=== PATIENT | male | born 1970 | race Caucasian/White ===

== ENCOUNTER 2022-10-13 08:48 | Outpatient (OUT) | payer OTHER, SELFPAY ==
--- NOTE | 2022-10-13 09:05 | PM.CN ---
Consult Note: HPI Data of Consult Patient: known to practice within the last 3 years Consult date: 10/13/22 Requesting Physician: JEFF IYER NP Primary Care Provider: James Hernández DO Consult Narrative Narrative: Patient is here for f/u of low back pain which is improving since surgery. Has not had PT yet . Walks with cane. No new sensorimotor or bowel or bladder issues. No adverse medication SE. Medication regimen assists patient in ability to complete ADLs. Lumbar fusion 08/21. Sees surgeon for f/u next week. He is taking tylenol for pain. Will f/u PRN since post-surgery and no meds or therapy prescribed by us. cc:: CC: JEFF IYER NP Review of Systems ROS Status of ROS 10 or more systems reviewed and unremarkable except as noted in history and below Musculoskeletal Reports: back pain Exam Constitutional Documenting provider has reviewed patient's vital signs: yes Common normals: no apparent distress, average body habitus, oriented x3, no limitations, healthy appearing, alert and well nourished General appearance: cooperative, comfortable and well developed Orientation/consciousness: Yes awake, Yes oriented to person, Yes oriented to place and Yes oriented to time HENMT Common normals: head/scalp atraumatic, nasal mucous membranes and turbinates normal and moist oral mucous membranes Respiratory Common normals: normal respiratory effort, no retractions and no use of accessory muscles Effort & inspection: able to speak in complete sentences and symmetric chest movement Back & Pelvis Lumbar spine/lower back: ROM limited, pain with ROM, paraspinal muscle tenderness and other soft tissue findings (surgical scars well healed. No drainage or sx of infection) Assessment and Plan Assessment and Plan (1) Lumbar stenosis: Plan See surgeon as scheduled f/u PRN
== END 2022-10-13 08:49 ==
PROVIDERS: PCP Internal Medicine; Visit Provider Nurse Practitioner
DX: S23.3XXA Sprain of ligaments of thoracic spine, initial encounter (principal); S33.8XXA Sprain of other parts of lumbar spine and pelvis, initial encounter; M51.26 Other intervertebral disc displacement, lumbar region
CPT/HCPCS: G0463

== ENCOUNTER 2022-10-27 06:55 | Outpatient (RCR) | payer OTHER, SELFPAY | END 2023-04-30 09:00 | disposition home or self-care (01) | LOC: PT 06:55 | PROVIDERS: PCP Internal Medicine; Visit Provider Nurse Practitioner Family | DX: Z98.1 Arthrodesis status (principal) | CPT/HCPCS: 20561; 97110; 97112; 97113; 97140; 97162; 97530 ==

== ENCOUNTER 2023-05-10 12:57 | Outpatient (RCR) | payer SELFPAY | END 2023-06-15 08:00 | disposition home or self-care (01) | LOC: PT 12:57 | PROVIDERS: PCP Internal Medicine; Visit Provider Nurse Practitioner Family | DX: M51.26 Other intervertebral disc displacement, lumbar region (principal); Z98.1 Arthrodesis status | CPT/HCPCS: 97140; 97530; 97546; W0710 ==

== ENCOUNTER 2023-06-12 12:03 | Outpatient (OUT) | payer OTHER, SELFPAY ==
--- OUTSIDE RECORDS SUMMARY | 2023-06-12 12:08 | XMS_ITS | CCD ---
Author Name Unknown Address [address] [place] [address] Organization [facility] Care Team Providers Care Tug Captain Name Role Phone Amaya George Unavailable James Farley Unavailable FITZPATRICK ., BEBETO Consulting Unavailable DE LEON ., DR KRISTIN Calvo Admitting Unavailable MARTINE, DR COFFMAN Primary Care Unavailable DE LEON ., DR KRISTIN Calvo Attending Unavailable WYATT, CHELA Primary Care Unavailable DE LEON ., DR KRISTIN Calvo Admitting Unavailable DE LEON ., DR KRISTIN Calvo Consulting Unavailable DE LEON ., DR KRISTIN Calvo Attending Unavailable FITZPATRICK ., BEBETO Consulting Unavailable WYATT, CHELA Primary Care Unavailable DE LEON ., DR KRISTIN Calvo Admitting Unavailable DE LEON ., DR KRISTIN Calvo Attending Unavailable WYATT, CHELA Primary Care Unavailable DE LEON ., DR KRISTIN Calvo Admitting Unavailable DE LEON ., DR KRISTIN Calvo Attending Unavailable MARTINE, DR COFFMAN Consulting Unavailable DE LEON ., DR KRISTIN Calvo Consulting Unavailable FITZPATRICK ., BEBETO Consulting Unavailable IRISH MONK Attending Unavailable IRISH MONK Admitting Unavailable IRISH MONK Consulting Unavailable MARTINE, DR COFFMAN Primary Care Unavailable MARTINE, DR COFFMAN Primary Care Unavailable DE LEON ., DR KRISTIN Calvo Admitting Unavailable DE LEON ., DR KRISTIN Calvo Consulting Unavailable DE LEON ., DR KRISTIN Calvo Attending Unavailable MARTINE, DR COFFMAN Primary Care Unavailable MOISES ., DR KRISTIN Calvo Admitting Unavailable DE LEON ., DR KRISTIN Calvo Attending Unavailable FITZPATRICK ., BEBETO Consulting Unavailable MARTINE, DR COFFMAN Primary Care Unavailable DE LEON ., DR KRISTIN Calvo Admitting Unavailable DE LEON ., DR KRISTIN Calvo Attending Unavailable MARTINE, DR COFFMAN Consulting Unavailable DE LEON ., DR KRISTIN Calvo Consulting Unavailable LAKSHMIPATHY, NARENDRANATH Admitting Unava ilable WYATT, CHELA Primary Care Unavailable LAKSHMIPATHY, NARENDJOSEATH Attending Unava ilable NÉSTOR ., HIRA Admitting Unavailable NÉSTOR ., HIRA Consulting Unavailable NÉSTOR ., HIRA Attending Unavailable MARTINE, DR COFFMAN Primary Care Unavailable NÉSTOR ., HIRA Attending Unavailable NÉSTOR ., HIRA Admitting Unavailable NÉSTOR ., HIRA Consulting Unavailable MARTINE, DR COFFMAN Primary Care Unavailable DE LEON ., DR KRISTIN Calvo Attending Unavailable MARTINE, DR COFFMAN Consulting Unavailable MARTINE, DR COFFMAN Primary Care Unavailable DE LEON ., DR KRISTIN Calvo Admitting Unavailable DE LEON ., DR KRISTIN Calvo Consulting Unavailable ANDRELEVON, IRISH Admitting Unavailable BALL, DR COFFMAN Primary Care Unavailable ANDRELEVON, IRISH Attending Unavailable MARTINE, DR COFFMAN Primary Care Unavailable MARTINE, DR COFFMAN Attending Unavailable BALL, DR COFFMAN Admitting Unavailable ANDRESHANTONIO, IRISH Admitting Unavailable ANDRELEVON, IRISH Attending Unavailable BALL, DR COFFMAN Primary Care Unavailable DE LEON ., DR KRISTIN Calvo Admitting Unavailable DE LEON ., DR KRISTIN Calvo Consulting Unavailable DE LEON ., DR KRISTIN Calvo Attending Unavailable CHELA NAZARIO Primary Care Unavailable CHELA NAZARIO Primary Care Unavailable DE LEON ., DR KRISTIN Calvo Admitting Unavailable DE LEON ., DR KRISTIN Calvo Consulting Unavailable DE LEON ., DR KRISTIN Calvo Attending Unavailable MIYA MORLEY Consulting Unavailable Allergies Allergy Classification Reported Allergen(s) Allergy Type Date of Onset Reaction(s) Facility (1 source) patient allergy list reviewed by nurse or physicia Propensity to adverse reactions 9 Comment:Done [facility] Other Medications Current Medications Medication Drug Class(es) Dates Sig (Normalized) Sig (Original) atenolol 50 mg oral tablet (8 sources) beta-Adrenergic Hardik Start: 12-03-2021 take 1 tablet by mouth once daily Atenolol 50MG Atenolol 50MG, 1 (one) Tablet daily # 0, 12/03/2021, No Refill. Active Oral daily for 0 *Pick strength-form from [employer] for eRX* Nov, Active atorvastatin 20 mg oral tablet (7 sources) HMG-CoA Reductase Inhibitor take 1 tablet by mouth once daily in the evening Atorvastatin Calcium 20 MG TAKE 1 TABLET BY MOUTH EVERY EVENING Active cyclobenzaprine hydrochloride 10 mg oral tablet (6 sources) Muscle Relaxant take 1 tablet by mouth every eight hours Cyclobenzaprine HCl 10 MG TAKE 1 TABLET BY MOUTH EVERY 8 HOURS Oral for 5 Days Active gabapentin 300 mg oral capsule (6 sources) Anti-epileptic Agent take 1 capsule by mouth twice daily Gabapentin 300 MG TAKE 1 CAPSULE BY MOUTH TWICE A DAY Oral for 30 Days Active lisinopril 5 mg oral tablet (7 sources) Angiotensin Converting Enzyme Inhibitor take 1 tablet by mouth once daily Lisinopril 5 MG TAKE 1 TABLET BY MOUTH EVERY DAY Active meloxicam 15 mg oral tablet (6 sources) Nonsteroidal Anti-inflammatory Drug take 1 tablet by mouth once daily Meloxicam 15 MG TAKE 1 TABLET BY MOUTH EVERY DAY Oral for 30 Days Active Problems Active Problems Problem Classification Problem Date Documented Date Episodic/Chronic Cardiac dysrhythmias (2 sources) Supraventricular tachycardia; Translations: [Supraventricular tachycardia] Onset: 06-15-2016 Chronic Crushing injury or internal injury (7 sources) Crushing injury of ankle; Translations: [Crushing injury of left ankle, initial encounter] Episodic Disorders of lipid metabolism (3 sources) Pure hypercholesterolemia; Translations: [Pure hypercholesterolemia, unspecified] Chronic Essential hypertension (3 sources) Essential hypertension; Translations: [Essential (primary) hypertension] Chronic Immunizations and screening for infectious disease (2 sources) Vaccination given; Translations: [Encounter for immunization] Episodic Joint disorders and dislocations; trauma-related (1 source) Derangement of knee; Translations: [Unspecified internal derangement of knee] Chronic Other circulatory disease (1 source) Personal history of other diseases of the circulatory system Episodic Other connective tissue disease (1 source) Plantar fascial fibromatosis; Translations: [Plantar fascial fibromatosis] Episodic Other nervous system disorders (7 sources) Chronic pain; Translations: [Other chronic pain] Chronic Other non-traumatic joint disorders (7 sources) Shoulder joint pain; Translations: [Pain in left shoulder] Episodic Other nutritional; endocrine; and metabolic disorders (1 source) Overweight; Translations: [Overweight] Episodic Other upper respiratory infections (2 sources) Acute maxillary sinusitis; Translations: [Acute maxillary sinusitis, unspecified] Onset: 06-06-2016 Episodic Spondylosis; intervertebral disc disorders; other back problems (20 sources) Cervical spondylosis without myelopathy; Translations: [Spondylosis without myelopathy or radiculopathy, cervical region] Onset: 01-02-2018 Chronic Spondylosis; intervertebral disc disorders; other back problems (20 sources) Cervical radiculopathy; Translations: [Radiculopathy, cervical region] Onset: 02-05-2015 Episodic Sprains and strains (20 sources) Sprain of ligament of lumbosacral joint; Translations: [Sprain of unspecified parts of lumbar spine and pelvis, initial encounter] Onset: 03-16-2017 Resolved: 10-05-2021 Episodic Substance-related disorders (4 sources) Tobacco user; Translations: [Nicotine dependence, cigarettes, uncomplicated] Onset: 06-15-2016 Chronic Unclassified (4 sources) CONTACT W/AND (SUSP) EXPOS COVID-19; Translations: [CONTACT W/AND (SUSP) EXPOS COVID-19] Onset: 05-08-2022 Unclassified (1 source) LOW BACK PAIN, UNSPECIFIED; Translations: [LOW BACK PAIN, UNSPECIFIED] Onset: 04-07-2022 Past or Other Problems Problem Classification Problem Date Documented Date Episodic/Chronic Abdominal pain (1 source) Epigastric pain; Translations: [Epigastric pain] Onset: 09-20-2016 Episodic Bacterial infection; unspecified site (1 source) Bacterial infectious disease; Translations: [Bacterial infection, unspecified, in conditions classified elsewhere and of unspecified site] Onset: 07-16-2018 Episodic Noninfectious gastroenteritis (1 source) Non-infective enteritis and colitis; Translations: [Noninfective gastroenteritis and colitis, unspecified] Onset: 09-25-2014 Episodic Nonspecific chest pain (1 source) Chest pain; Translations: [Other chest pain] Resolved: 08-31-2020 Episodic Other ear and sense organ disorders (1 source) Otalgia; Translations: [Otalgia, left ear] Onset: 06-06-2016 Episodic Other nervous system disorders (1 source) Abnormal reflex; Translations: [Abnormal reflex] Onset: 01-02-2018 Episodic Other non-traumatic joint disorders (1 source) Arthralgia of the lower leg; Translations: [Pain in unspecified knee] Onset: 01-17-2013 Episodic Other nutritional; endocrine; and metabolic disorders (1 source) Loss of appetite; Translations: [Anorexia] Onset: 09-20-2016 Episodic Residual codes; unclassified (1 source) Tobacco user; Translations: [Tobacco use] Onset: 06-15-2016 Episodic Residual codes; unclassified (1 source) C/O - a back symptom; Translations: [Other symptoms referable to back] Onset: 03-16-2017 Episodic Unclassified (1 source) CONTACT W/AND (SUSP) EXPOS COVID-19; Translations: [CONTACT W/AND (SUSP) EXPOS COVID-19] Onset: 08-15-2022 Viral infection (1 source) Viral disease; Translations: [Unspecified viral infection, in conditions classified elsewhere and of unspecified site] Onset: 06-26-2018 Episodic Results Test Name Value Interpretation Reference Range Facil odalis Covid-19 PCR (CVDTB)on 07-30 SARS-CoV-2 (COVID-19) RNA RYLIE+probe Ql (Unsp spec) Not detected Normal NOT DETECTED [facility] Comment on above: Result Comment: This test is not yet janett roved or cleared by the [place] FDA. When there are no FDA-approved or cleared tests available, and other criteria are met, FDA can make tests available under an emergency access mechanism called an Emergency Use Authorization (EUA). The EUA for this test is supported by the [employer] Director of Health and Human Service's (HHS's) declaration that circumstances exist to justify the emergency use of in vitro diagnostics for the detection and/or diagnosis of the virus that causes COVID-19. This EUA will remain in effect (meaning this test can be used) for the duration of the COVID-19 declaration justifying emergency of IVDs, unless it is terminated or revoked by FDA (after which the test may no longer be used). When diagnostic testing is negative, the possibility of a false negative should be considered in the context of a patient's recent exposures and the presence of clinical signs and symptoms consistent with SARS-CoV-2. Performed By: #### C VDTB #### [facility] [address] [place] [address] Dr. Yanet Li Covid-19 PCR (CVDTB)on SARS-CoV-2 (COVID-19) RNA RYLIE+probe Ql (Unsp spec) Not detected Normal NOT DETECTED [facility] Comment on above: Result Comment: This test is not yet janett roved or cleared by the [place] FDA. When there are no FDA-approved or cleared tests available, and other criteria are met, FDA can make tests available under an emergency access mechanism called an Emergency Use Authorization (EUA). The EUA for this test is supported by the [place] of Health and Human Service's (HHS's) declaration that circumstances exist to justify the emergency use of in vitro diagnostics for the detection and/or diagnosis of the virus that causes COVID-19. This EUA will remain in effect (meaning this test can be used) for the duration of the COVID-19 declaration justifying emergency of IVDs, unless it is terminated or revoked by FDA (after which the test may no longer be used). When diagnostic testing is negative, the possibility of a false negative should be considered in the context of a patient's recent exposures and the presence of clinical signs and symptoms consistent with SARS-CoV-2. Performed By: #### C [facility] #### [facility] [address] [place] [address] Dr. Yanet Li Vital Signs Date Time Vital Sign Value Performing Clinician Facility 02-07-2023 10:30-0400 Body height 182.88 cm James Formatta Other [facility] Other 02-07-2023 10:30-0400 Body mass index (BMI) [Ratio] 27.61 kg/m2 James Formatta Other [facility] Other 02-07-2023 10:30-0400 Body weight 92.35 kg James Ball Other [facility] Other 02-07-2023 10:30-0400 Diastolic blood pressure 84 mm[Hg] James Formatta Other [facility] Other 02-07-2023 10:30-0400 Respiratory rate 12 /min James Formatta Other [facility] Other 02-07-2023 10:30-0400 Systolic blood pressure 130 mm[Hg] James Ball Other [facility] Other 10-05-2021 14:20-0400 Body height 182.88 cm George Conde Other [facility] Other 10-05-2021 14:20-0400 Body mass index (BMI) [Ratio] 27.12 kg/m2 George Conde Other [facility] Other 10-05-2021 14:20-0400 Body weight 90.72 kg George Conde Other [facility] Other Encounters Encounter Date Encounter Type Care Provider Facility Start: 02-07-2023 End: 02-07-2023 ambulatory James Farley Other [facility] Other Start: 02-07-2023 Office outpatient vi sit 15 minutes James Farley [facility] Start: 11-29-2022 End: 11-29-2022 ambulatory James Farley Other [facility] Other Start: 11-29-2022 Telephone encounter James Farley [facility] Start: 10-20-2022 End: 10-20-2022 ambulatory George Conde Other [facility] Other Start: 10-20-2022 Telephone encounter George Conde [facility] Start: 10-19-2022 End: 10-19-2022 ambulatory James Farley Other [facility] Other Start: 10-19-2022 Telephone encounter James MERCEDES [facility] Start: 08-17-2022 End: 08-17-2022 ambulatory George Conde Other [facility] Other Start: 08-17-2022 Telephone encounter George Conde [facility] Start: 08-15-2022 End: 08-16-2022 ambulatory IRISH MONK Facility:[facility] Start: 07-14-2022 End: 07-15-2022 ambulatory BEBETO Barrios Facility:[facility] Start: 06-28-2022 End: 06-28-2022 ambulatory CHELA NAZARIO Facility:[facility] Start: 06-22-2022 End: 06-22-2022 ambulatory James Farley Other [facility] Other Start: 06-22-2022 Telephone encounter James Farley [facility] Start: 06-09-2022 End: 06-10-2022 ambulatory BEBETO FITZPATRICK . Facility:[facility] Start: 06-03-2022 End: 06-04-2022 ambulatory IRISH MONK Facility:[facility] Start: 05-10-2022 End: 05-10-2022 ambulatory CHELA NAZARIO Facility:[facility] Start: 05-08-2022 Encounter for preprocedural laboratory examination DR KRISTIN DE LEON . [facility] Start: 05-06-2022 End: 05-07-[address] KRISTIN DE LEON . Facility:[facility] Start: 05-06-2022 End: 05-07-2022 Encounter for preprocedural laboratory examination DR KRISTIN DE LEON . Facility:[facility] Start: 04-29-2022 End: 04-30-2022 ambulatory CHELA NAZARIO Facility:[facility] Start: 04-05-2022 End: 04-05-[address] JAMES FARLEY Facility:[facility] Start: 03-03-2022 End: 03-04-[address] JAMES FARLEY Facility:[facility] Start: 02-08-2022 End: 02-08-[address] JAMES FARLEY Facility:[facility] Start: 01-25-2022 End: 01-26-[address] KRISTIN DE LEON . Facility:[facility] Start: 12-31-2021 End: 02-11-2022 ambulatory IRISH MONK Facility:[facility] Start: 10-21-[address] JAMES FARLEY Facili ty:[facility] Start: 10-05-2021 End: 10-05-2021 ambulatory George Conde Other [facility] Other Start: 10-05-2021 Office outpatient ne w 30 minutes George Conde [facility] Start: 09-24-2021 End: 09-25-2021 ambulatory HIRA PALM . Facility:[facility] Start: 09-10-2021 End: 09-10-2021 ambulatory HIRA PALM . Facility: Start: 08-16-2021 Adult health examination Josse Farley Other [facility] Other Procedures Date Procedure Procedure Detail Performing Clinician Depression screening Jasmina Farley Other Screening for malign ant neoplasm of prostate James Farley Other Plan of Treatment Date Care Activity Detail Author Start: 10-13-2022 ambulatory Ambulatory Facility:[facility] 1 Immunizations Immunization Date Immunization Notes Care Provider Fa cility 02-07-2023 influenza, injectabl e, quadrivalent, preservative free James Farley Other [facility] Other 02-15-2021 influenza virus vaccine, split virus (incl. purified surface antigen) James Farley Other [facility] Other Payers Date Payer Category Payer Unknown [id number] 2.16.84 [id number] 1971 Unknown [id number] 2.16.84 [id number] 1971 Unknown [id number] 2.16.84 0.1.665544.3.579.2.593 1971 Unknown [id number] 2.16.84 0.1.880630.3.579.2.593 1971 Unknown [id number] 2.16.84 0.1.609333.3.579.2.593 1971 Unknown [id number] 2.16.84 0.1.799654.3.579.2.593 1971 Unknown [id number] 2.16.84 0.1.880201.3.579.2.593 1971 Unknown [id number] 2.16.84 0.1.292890.3.579.2.593 1971 Unknown [id number] 2.16.84 0.1.344136.3.579.2.593 1971 Unknown [id number] 2.16.84 0.1.220744.3.579.2.593 1971 Unknown [id number] 2.16.84 0.1.485221.3.579.2.593 1971 Unknown [id number] 2.16.84 0.1.433092.3.579.2.593 1971 Unknown [id number] 2.16.84 0.1.629572.3.579.2.593 1971 Unknown [id number] 2.16.84 0.1.804965.3.579.2.593 1971 Unknown [id number] 2.16.84 0.1.447836.3.579.2.593 1971 Unknown [id number] 2.16.84 0.1.510412.3.579.2.593 1971 Unknown [id number] 2.16.84 0.1.857093.3.579.2.593 1959 Self-pay 1959 Unknown [id number] 2.16 [id number] 1959 Unknown [id number] 1959 Unknown [id number] [facility] [id number] Private Health Insurance [id number] Social History Date Type Detail Facility Sex Assigned At [facility] Other Clinical Notes 10-05-2021 to 02-07-2023 Note Date & Type Note Facility 02-07-2023 Evaluation note Encounter Date Diagnosis Assessment Notes Jan, Primary hypertension (ICD-10 - I10) This patient is instructed to consume a healthy, low-fat, low-salt diet. They are also encouraged to continue exercise to achieve/maintain a normal BMI. Jan, Elevated cholesterol (ICD-10 - E78.00) Instructed on diet and exercise with continued statin therapy.Discussed the beneficial effects of lowering cholesterol in reducing the risk for cerebrovascular and cardiovascular disease. Jan, Cigarette nicotine dependence without complication (ICD-10 - F17.210) This patient has been encouraged to quit tobacco use immediately. They are aware of the hazards associated with tobacco use, including but not limited to respiratory infections, vascular disease and cancers. Jan, Lumbar spondylosis (ICD-10 - M47.816) The patient is instructed to avoid bending, twisting or lifting. They are to use intermittent heat and ice as needed. They may schedule a massage or gentle manipulation. They may safely use Tylenol as needed. s/p lumbar fusion in July Off work since May 2022 Jan, History of PSVT (paroxysmal supraventricular tachycardia) (ICD-10 - Z86.79) s/p ablation [facility] Other 03-16-2023 NoteCONSULTATION CONSULTATION DATE: 07/14/2022 HISTORY: This is a pleasant, 52-year-old gentleman who is a WBC case, who returns to the clinic status post L4 transforaminal epidural steroid injection completed on 06/28/2022. The patient states he has had some relief, but only at 25%. This procedure was requested by neurosurgeon, Dr. Monk, more as a diagnostic. Since that time, the patient has seen Dr. Monk and has an anterior fusion scheduled. His pain is 2/10 today at rest, but will increase to 5/10 with prolonged twisting, pushing, pulling, lifting and bending. Medications include Flexeril 10 mg q.h.s., diclofenac 75 mg b.i.d. and Tylenol. Patient's REVIEW OF SYSTEMS / PAST MEDICAL HISTORY / ALLERGIES and IMAGES have been reviewed and noted on the chart. PHYSICAL EXAM: VITAL SIGNS: Blood pressure is 134/86. Heart rate is 79. Temperature is 97.7. He is 6' tall, weighs 74 kg. GENERAL IMPRESSION: Pleasant, appropriate, in no acute distress. FOCUSED EXAM - BACK: Range of motion is functional in lateral rotation and flexion/extension. Paravertebral muscles are non-spasmodic. Spinal axial pain reproduced along the lumbar facets of L3, L4, L5 bilaterally, right greater than left. Pain does radiate to his right lower leg. MUSCULOSKELETAL: Motor is intact, 4/5 bilaterally. Patient walks unassisted with a stable gait. NEUROLOGICAL: Patchy hypoesthesia noted along the L4-5 distribution with +1/2 bilateral reflexes. \.br\ DIAGNOSIS: BWC diagnosis: M51.26, S33.5XXA S23.3XXA. PLAN: We will follow up with the patient in three months time and continue to manage his medications. He will be currently under Dr. Monk's care with a pending surgery. Patient agrees with this plan and all questions answered.[id number] NotePAIN MANAGEMENT CONSULTATION CONSULTATION DATE: 07/14/2022 HISTORY: This is a pleasant, 52-year-old gentleman who is a WBC case, who returns to the clinic status post L4 transforaminal epidural steroid injection completed on 06/28/2022. The patient states he has had some relief, but only at 25%. This procedure was requested by neurosurgeon, Dr. Monk, more as a diagnostic. Since that time, the patient has seen Dr. Monk and has an anterior fusion scheduled. His pain is 2/10 today at rest, but will increase to 5/10 with prolonged twisting, pushing, pulling, lifting and bending. Medications include Flexeril 10 mg q.h.s., diclofenac 75 mg b.i.d. and Tylenol. Patient's REVIEW OF SYSTEMS / PAST MEDICAL HISTORY / ALLERGIES and IMAGES have been reviewed and noted on the chart. PHYSICAL EXAM: VITAL SIGNS: Blood pressure is 134/86. Heart rate is 79. Temperature is 97.7. He is 6' tall, weighs 74 kg. GENERAL IMPRESSION: Pleasant, appropriate, in no acute distress. FOCUSED EXAM - BACK: Range of motion is functional in lateral rotation and flexion/extension. Paravertebral muscles are non-spasmodic. Spinal axial pain reproduced along the lumbar facets of L3, L4, L5 bilaterally, right greater than left. Pain does radiate to his right lower leg. MUSCULOSKELETAL: Motor is intact, 4/5 bilaterally. Patient walks unassisted with a stable gait. NEUROLOGICAL: Patchy hypoesthesia noted along the L4-5 distribution with +1/2 bilateral reflexes. \.br\ DIAGNOSIS: BWC diagnosis: M51.26, S33.5XXA S23.3XXA. PLAN: We will follow up with the patient in three months time and continue to manage his medications. He will be currently under Dr. Monk's care with a pending surgery. Patient agrees with this plan and all questions answered.[facility] [id number] NoteCONSULTATION CONSULTATION DATE: 06/09/2022 HISTORY OF PRESENT ILLNESS: This is a 51-year-old gentleman who is a Workman's Comp case, accompanied by his [facility] registered medical assistant, status post bilateral RFA of L4, L5. This was completed on 05/10/2022 and thus far has afforded him 50% relief. He states overall he is feeling better and is hoping for more improvement. Since his last office visit, he had a Neurosurgery consult with Dr. Monk. Dr. Monk recommended bilateral transforaminal epidural steroid injection at the level of L4. According to his notes and concordant with what the patient states, he would like to avoid a fusion and would like to trial this procedure. Patient does have radiating pain from his back, along the anterior and lateral aspect of his thigh to the level of the knee. He states all physical activity greatly aggravates his pain, particularly transitioning from sitting to standing. He does use heat which is beneficial. Medications include Flexeril 10 mg q.h.s., diclofenac 75 mg b.i.d. and Tylenol. He states the Diclofenac is giving him heartburn. Patient's REVIEW OF SYSTEMS / PAST MEDICAL HISTORY / ALLERGIES and IMAGES have been reviewed and noted on the chart. PHYSICAL EXAM: VITAL SIGNS: Blood pressure is 154/93. Heart rate is 82. Temperature is 98.4. He is 6'1 , weighs 98 kg. GENERAL IMPRESSION: Pleasant, appropriate, in no acute distress. FOCUSED EXAM - BACK: Range of motion is functional in lateral rotation and flexion/extension. Paravertebral muscles are non-spasmodic. No reproduction of spinal axial pain upon compression of the lower lumbar facets. Griselda's point is non-tender. MUSCULOSKELETAL: Motor is intact, 4/5 bilaterally. No vasomotor weakness noted. He walks unassisted. NEUROLOGICALLY: Patchy hypoesthesia noted along the L4-L5 dermatome. Radiating pain to the level of the knee. Bilateral lower extremity reflexes are intact, 2/2. DIAGNOSIS: [facility] Code M51.26, S33.5XXA and S23.3XXA PLAN: Upon Dr. Monk's recommendation, we will move to obtain approval for bilateral transforaminal epidural steroid injections of the L4 nerve root. We will discontinue the diclofenac and start him on Mobic 15 mg daily, and refill Flexeril 10 mg q.h.s. Patient does agree to this plan, will be followed up in the clinic thereafter.[facility] [id number] NoteCONSULTATION CONSULTATION DATE: 04/29/2022 HISTORY OF PRESENT ILLNESS: This is a 51-year-old gentleman who is a Workman's Comp case, returning to the clinic status post #1 bilateral MBB of L4, L5 completed on 04/05/2022. The patient was afforded 100% relief for one hour. Patient felt he had a more upright posture and was able to walk around the parking lot in a normal stride, and even walk the dog following the procedure. Today, at rest, he rates his pain 2/10 but with increased activity will get to 6/10. Standing, walking, bending, lifting and any physical activity aggravates his pain. His medications include diclofenac 75 mg b.i.d., Tylenol and Flexeril 10 mg t.i.d. He was last seen on 03/03/2022 and, since then, he had a follow up appointment with the spine surgeon, Dr. Monk, on 03/18/2022. He also recommended medial branch blocks and radiofrequency ablations as well. Patient's REVIEW OF SYSTEMS / PAST MEDICAL HISTORY / ALLERGIES and IMAGES have been reviewed and noted in the chart. PHYSICAL EXAM: VITAL SIGNS: Blood pressure 139/87, heart rate is 84. Temperature is 97.7. He is 6'1 , weighs 99 kg. GENERAL IMPRESSION: Pleasant, appropriate, in no acute distress. WBC registered medical assistant is present with him. FOCUSED EXAM - BACK: Paravertebral muscles are taut bilaterally. Range of motion is guarded in lateral rotation and flexion/extension. Reproduction of spinal axial pain upon deep compression along the bilateral lumbar facets of L4, L5. Radiating pain does go below the knee bilaterally. Griselda's point is non- tender with negative FABERs and compression test. MUSCULOSKELETAL: Motor is intact, bilateral lower extremities, 5/5. NEUROLOGICAL: Patchy hypoesthesia noted along the L4-L5 distribution bilaterally to the level of the ankle. +2 bilateral patellar and Achilles reflexes. DIAGNOSIS: C code M51.26, S33.8XXA, S23.3XXA. PLAN: Rn Sane on the spot approved to move forward with bilateral radiofrequency ablations of L4-L5. Patient is in agreement with this. He will be followed up in the clinic thereafter.[facility] [id number] Note CONSULTATION CONSULTATION DATE: 03/03/2022 HISTORY OF PRESENT ILLNESS: This is a 51-year-old gentleman, who is a Workman's Comp case, presents with his registered medical assistant today, status post bilateral L5 transforaminal epidural steroid injection. The patient had that completed on 02/08/2022 and reported minimal to no improvement. He has radiating pain down bilateral legs to the posterior and lateral aspect of his lower extremities. He has been using an inversion table that has improved the neuropathic pain in his feet. Medications include diclofenac 75 mg b.i.d., Tylenol and Flexeril 10 mg q.h.s. Patient reports transitioning positions from sitting to standing is very uncomfortable, in addition to pushing, pulling, standing, bending and any physical activity. He does use heat on his back which is beneficial. Patient does have a pending Neurosurgery appointment with Dr. Monk on 03/18/2022. Patient's REVIEW OF SYSTEMS / PAST MEDICAL HISTORY / ALLERGIES and IMAGES have been reviewed and they are noted on the chart. PHYSICAL EXAM: VITAL SIGNS: Blood pressure 141/94, heart rate is 69. Temperature is 97.7. He weighs 96.2 kg. GENERAL IMPRESSION: Pleasant, appropriate, no acute distress. FOCUSED EXAM - BACK: Range of motion is guarded in lateral rotation and flexion/extension. Paravertebral muscles are taut but non-spasmodic. Spinal axial pain is reproduced upon deep compression along the L4-L5 facets bilaterally, with a positive jump response. Griselda's point is non-tender. FABERs and compression tests are negative. Pain does radiate below the knees. MUSCULOSKELETAL: Motor is intact, 4/5 bilaterally. Patient walks with a slow, steady, antalgic gait. NEUROLOGICAL: Diffuse hypoesthesia noted along L5-S1 dermatomes to the level of the feet. Blunted bilateral patellar and Achilles reflexes. DIAGNOSIS: [facility] diagnosis is M51.26, S33.8XXA, S23.3XXA. PLAN: After much discussion with the patient, we will move forward with the #1 bilateral MBB of L4 and L5. Patient is to continue with his medications in addition to multivitamin. He will be followed up in the clinic thereafter. Patient and registered medical assistant agree to move forward.[facility] [id number] NoteCONSULTATION CONSULTATION DATE: 01/25/2022 CHIEF COMPLAINT: Low back pain, bilateral leg pain. HISTORY OF PRESENT ILLNESS: This is a 51-year-old gentleman who is referred to us by Chela Nazario CNP. The patient has a work related injury. The date of injury was 05/15/2021. The patient is present with his registered medical assistant. The patient describes the pain as a 4-5/10, a achy, throbbing, stabbing sensation. Pushing, pulling, lifting, transitioning, walking, leaning, housework, activities, ADLs, change in weather aggravate the patient's pain. Heat mitigates the patient's pain. The patient has been seen by a neurosurgeon, Dr. Irish Monk, who has suggested a transforaminal epidural steroid injection along the L4 nerve root, and then if that improved the pain symptomatology, for him to have medial branch block at the level of L3, L4 and L5 bilaterally. The patient currently takes Flexeril 10 mg - He states it is not helping. Gabapentin 300 mg b.i.d. - The patient states he stopped it secondary to welling and depression. The patient's PAST MEDICAL HISTORY is noted on to the chart, along with the MEDICATION LIST / ALLERGIES and RADIOLOGICAL IMAGES, including the MRI, which was reviewed with the patient and the registered medical assistant. PHYSICAL EXAM: Upon physical examination, this is a 51-year-old gentleman, who has significant pain behavior. VITAL SIGNS: 134/89, with a heart rate of 54. At a height of 6'1 , the patient weighs 95 kg. FOCUSED EVALUATION - Slight lumbar paravertebral spasming is noted, left hand side greater than the right hand side. Extension, compression, direct palpation aggravates and reproduces patient's pain symptomatology concordant with facet arthropathy at the level of L5-S1, L4-L5. EXTREMITIES: No pedal edema is noted. MUSCULOSKELETAL: Intact. The toe extenders on the right hand side are slightly diminished at 4+/5, remainder are 5/5. Patellar reflexes are intact at 2+ bilaterally. Achilles is absent on the right. IMPRESSION: Current approved diagnosis includes disc protrusion at the level of L4-L5. PLAN: In discussing with the patient, we have instructed the patient to continue with the Flexeril 10 mg p.o. daily. Diclofenac 75 mg b.i.d. will be added. The patient will be scheduled for a transforaminal epidural steroid injection at the level of L5 rather than L4, given the patient's MRI and physical findings and the reflexes being intact. There is a concern where the S1 may be contributing to a component of the patient's pain symptomatology on the right hand side. Education was done. Questions/answers were done. The patient understands and he would like to proceed. CC: Chela Nazario, [facility]06-07-2022 Evaluation note* Encounter Date Diagnosis Assessment Notes Treatment Notes Treatment Clinical Notes Sep, Low back sprain (ICD-10 - S33.9XXA) I have independently reviewed the MRI of the lumbar spine and the plain x-ray of the lumbar spine. The plain x-ray shows good alignment overall reasonable disc height. The MRI shows a very mild lateral recess stenosis secondary to disc bulge with possibly some right L5 nerve root compression. Clinically the patient has left leg pain not right although both legs hurt , the left distal is worse and that nerve root is completely free. The findings on the MRI are not consistent with numbness in the bottom of the feet and left leg pain is far greater than right leg pain. In my opinion there are no surgical options with regard to his back for the symptoms that the patient has. I am not sure I have a good explanation for the pain. [facility] Other evaluation noteNo InformationNortLab21 Other History general Narrative - Reported* Type Description Date Medical History Hypertension Medical History hypercholesterolemia Surgical History acl Surgical History Left Knee Surgery Surgical History Heart Ablasion Surgical History heart ablation Surgical History Cervical block Hospitalization History See Above [facility] Other History general Narrative - Reported* Type Description Date Medical History Hypertension Medical History hypercholesterolemia Surgical History acl Surgical History Left Knee Surgery Surgical History Heart Ablasion Surgical History heart ablation Surgical History Cervical block Surgical History Lumbar fusion L4-5 07/2022 Hospitalization History See Above [facility] Other Summary Purpose Family History No Family History Records Found Advance Directives No Advanced Directives Records Found Additional Source Comments REASON FOR VISIT (unrecogniz ed section and content) [facility] S33.9XXA Lumbar StrainRe fillNo InformationNo InformationrefillRefillcheckup (unrecognized sect ion and content) No Status Records Found INFORMATION SOURCE (unrecogn ized section and content) DATE CREATED AUTHOR 08/29/2022 [facility] pital FOR RECORDS PERTAINING TO PATIENTS WHO ARE OR HAVE BEEN ENROLLED IN A CHEMICAL DEPENDENCY/SUBSTANCEABUSE PROGRAM, SOME INFORMATION MAY BE OMITTED. This clinical summary was aggregated from multiple sources. Caution should be exercised in using it in the provision of clinical care. This summary normalizes information from multiple sources, and as a consequence, information in this document may materially change the coding, format and clinical context of patient data. In addition, data may be omitted in some cases. CLINICAL DECISIONS SHOULD BE BASED ON THE PRIMARY CLINICAL RECORDS. AddressReport [facility]. provides no warranty or guarantee of the accuracy or completeness of information in this document.
[2023-06-12 12:50] LABS: Basophils Percent Auto 0.5 % (0.2-2.0); Eosinophils Absolute Auto 0.2 10^3/uL (0.0-0.7); Eosinophils Percent Auto 2.1 % (0.9-7.0); Hematocrit 43.3 % (42.0-54.0); Hemoglobin 14.2 g/dL (14.0-18.0); Immature Granulocytes Abs Auto 0.03 10^3/uL (0.00-0.03); Immature Granulocytes Pct Auto 0.4 % (0.0-0.5); Lymphocytes Absolute Auto 2.7 10^3/uL (1.2-3.8); Lymphocytes Percent Auto 33.2 % (20.5-60.0); Mean Corpuscular HGB Conc 32.8 g/dL (29.9-35.2); Mean Corpuscular Hemoglobin 30.2 pg (25.9-34.0); Mean Corpuscular Volume 92.1 fL (80.0-94.0); Monocytes Absolute Auto 0.7 10^3/uL (0.3-0.8); Monocytes Percent Auto 8.9 % (1.7-12.0); Neutrophils Absolute Auto 4.5 10^3/uL (1.4-6.5); Neutrophils Percent Auto 54.9 % (43.0-75.0); Platelet Count 208 10^3/uL (150-450); Red Cell Distribution Width 12.7 % (11.0-15.0); White Blood Count 8.2 10^3/uL (4.0-11.0)
[2023-06-12 13:24] LABS: Alanine Aminotransferase 41 U/L (16-63); Albumin Globulin Ratio 1.1; Albumin Level 3.8 g/dL (3.4-5.0); Alkaline Phosphatase 100 U/L (46-116); Anion Gap 14.5; Aspartate Amino Transferase 17 U/L (15-37); BUN Creatinine Ratio 5.7; Bilirubin Total 0.3 mg/dL (0.2-1.0); Calcium 8.8 mg/dL (8.5-10.1); Carbon Dioxide 25.9 mmol/L (21.0-32.0); Chloride 105 mmol/L (98-107); Chol HDL Ratio 5.1; Cholesterol 208 mg/dL (<=200); Estimated GFR (African America >60 (>=60); Estimated GFR (Non-African Ame >60 (>=60); Globulin 3.5 g/dL; Glucose 95 mg/dL (74-106); HDL Cholesterol 41 mg/dL (40-60); Potassium 4.4 mmol/L (3.5-5.1); Sodium 141 mmol/L (136-145); Total Protein 7.3 g/dL (6.4-8.2); Triglycerides 124 mg/dL (<=150); VLDL CHOLESTEROL 24.8 mg/dL
[2023-06-12 14:08] LABS: Prostate Specific Antigen Scrn 1.04 ng/mL (<=4.00)
== END 2023-06-12 12:04 | disposition home or self-care (01) ==
LOC: LAB 12:06
PROVIDERS: PCP Internal Medicine; Visit Provider Internal Medicine
DX: Z00.00 Encounter for general adult medical examination without abnormal findings (principal)
CPT/HCPCS: 36415; 80053; 80061; 85025; G0103

== ENCOUNTER 2024-06-13 11:59 | Outpatient (OUT) | payer OTHER, SELFPAY ==
--- OUTSIDE RECORDS SUMMARY | 2024-06-13 12:08 | XMS_ITS | CCD ---
Author Organization [facility] CliniSyil Care Team Providers Care Clothes Separator Name Role Phone Sunny Condee Unavailable James Hernández Unavailable FITZPATRICK ., BEBETO Consulting Unavailable DE LEON ., DR KRISTIN Calvo Admitting Unavailable BALL, DR RAMIREZ Primary Care Unavailable DE LEON ., DR KRISTIN Calvo Attending Unavailable WYATT, CHELA Primary Care Unavailable DE LEON ., DR KRISTIN Calvo Admitting Unavailable DE LEON ., DR KRISTIN Calvo Consulting Unavailable DE LEON ., DR KRISTIN Calvo Attending Unavailable FITZPATRICK ., BEBETO Santillan Unavailable WYATT, CHELA Primary Care Unavailable DE LEON ., DR KRISTIN Calvo Admitting Unavailable DE LEON ., DR KRISTIN Calvo Attending Unavailable WYATTCHELA MURRAY Primary Care Unavailable DE LEON ., DR KRISTIN Calvo Admitting Unavailable DE LEON ., DR KRISTIN Calvo Attending Unavailable EDGAR, DR RAMIREZ Consulting Unavailable DE LEON ., DR KRISTIN Calvo Consulting Unavailable FITZPATRICK ., BEBETO Consulting Unavailable IRISH MONK Attending Unavailable IRISH MONK Admitting Unavailable IRISH MONK Consulting Unavailable EDGAR, DR RAMIREZ Primary Care Unavailable EDAGR, DR RAMIREZ Primary Care Unavailable DE LEON ., DR KRISTIN Calvo Admitting Unavailable DE LEON ., DR KRISTIN Calvo Consulting Unavailable DE LEON ., DR KRISTIN Calvo Attending Unavailable EDGAR, DR RAMIREZ Primary Care Unavailable DE LEON ., DR KRISTIN Calvo Admitting Unavailable DE LEON ., DR KRISTIN Calvo Attending Unavailable FIZTPATRICK ., BEBETO Consulting Unavailable EDGAR, DR RAMIREZ Primary Care Unavailable DE LEON ., DR KRISTIN Calvo Admitting Unavailable DE LEON ., DR KRISTIN Calvo Attending Unavailable EDGAR, DR RAMIREZ Consulting Unavailable DE LEON ., DR KRISTIN Calvo Consulting Unavailable LAKSHMIPATHY, NARENDRANATH Admitting Unava ilable WYATT, CHELA Primary Care Unavailable LAKSHMIPATHY, NARENDJOSEATH Attending Unava ilable NÉSTOR ., HIRA Admitting Unavailable NÉSTOR ., HIRA Consulting Unavailable NÉSTOR ., HIRA Attending Unavailable EDGAR, DR RAMIREZ Primary Care Unavailable NÉSTOR ., HIRA Attending Unavailable NÉSTOR ., HIRA Admitting Unavailable NÉSTOR ., HIRA Consulting Unavailable EDGAR, DR RAMIREZ Primary Care Unavailable DE LEON ., DR KRISTIN Calvo Attending Unavailable BALL, DR RAMIREZ Consulting Unavailable BALL, DR RAMIREZ Primary Care Unavailable DE LEON ., DR KRISTIN Calvo Admitting Unavailable DE LEON ., DR KRISTIN Calvo Consulting Unavailable ANDRESHAK, IRISH Admitting Unavailable BALL, DR RAMIREZ Primary Care Unavailable ANDRESHAK, IRISH Attending Unavailable BALL, DR RAMIREZ Primary Care Unavailable BALL, DR RAMIREZ Attending Unavailable BALL, DR RAMIREZ Admitting Unavailable ANDRESHAK, IRISH Admitting Unavailable ANDRESHAK, IRISH Attending Unavailable BALL, DR RAMIREZ Primary Care Unavailable DE LEON ., DR KRISTIN Calvo Admitting Unavailable DE LEON ., DR KRISTIN Calvo Consulting Unavailable DE LEON ., DR KRISTIN Calvo Attending Unavailable WYATT, CHELA Primary Care Unavailable WYATT, CHELA Primary Care Unavailable DE LEON ., DR KRISTIN Calvo Admitting Unavailable DE LEON ., DR KRISTIN Calvo Consulting Unavailable DE LEON ., DR KRISTIN Calvo Attending Unavailable MIYA MORLEY Consulting Unavailable Edgar, DO Ramirez Primary Care Provider MD Immanuel Madrid Attending Provider DO James Hernández Primary Care Provider MD Immanuel Madrid Attending Provider Edgar, DO Ramirez Primary Care Provider MD Immanuel Madrid Attending Provider James Hernández MD Primary Care Provider DANIEL LOPEZ Attending Unavailable IMMANUEL MADRID Unavailable Edgar, DO Ramirez Primary Care Provider MD Immanuel Madrid Attending Provider Edgar, DO Ramirez Primary Care Provider MD Immanuel Madrid Attending Provider James Hernández DO Primary Care Provider Immanuel Mdarid MD Attending Provider Immanuel Madrid Attending Unavailable Edgar, James Primary Care Unavailable Immanuel Madrid Admitting Unavailable Julius, Immanuel S Attending Unavailable Julius, Immanuel S Admitting Unavailable Ball, James Primary Care Unavailable Julius, Immanuel S Attending Unavailable Julius, Immanuel S Admitting Unavailable Ball, James Primary Care Unavailable Julius, Immanuel S Attending Unavailable Julius, Immanuel S Admitting Unavailable Ball, James Primary Care Unavailable Julius, Immanuel S Attending Unavailable Julius, Immanuel S Admitting Unavailable Ball, James Primary Care Unavailable Ball, James Primary Care Unavailable Julius, Immanuel S Admitting Unavailable Julius, Immanuel S Attending Unavailable Ball, James Primary Care Unavailable Kuns - CHC, Hossein P Admitting Unavailable Kuns - CHC, Hossein P Attending Unavailable Julius, Immanuel S Attending Unavailable Julius, Immanuel S Admitting Unavailable Ball, James Primary Care Unavailable Ball, James Primary Care Unavailable Julius, Immanuel S Admitting Unavailable Julius, Immanuel S Attending Unavailable Allergies Allergy Classification Reported Allergen(s) Allergy Type Date of Onset Reaction(s) Facility (1 source) patient allergy list reviewed by nurse or physicia Propensity to adverse reactions 9 Comment:Done bizHive Other Medications Current Medications Medication Drug Class(es) Dates Sig (Normalized) Sig (Original) acetaminophen 325 mg oral tablet (16 sources) Start: 10-05-2018 take 1 tablet by mouth every four hours as needed for pain Acetaminophen (Tylenol) 325 mg Tablet Active 325 MG PO Q4H as needed for Pain October 04, 2018 11:00pm atenolol 50 mg oral tablet (20 sources) beta-Adrenergic Hardik Start: 12-12-2023 End: 02-12-2024 take 1 tablet by mouth once daily Atenolol 50 mg tablet Active 0 .ROUTE .COMPLEX 90 February 12, 2024 12:59pm TAKE 1 TABLET BY MOUTH EVERY DAY Start: 10-05-2018 End: 12-12-2023 take 1 tablet by mouth once daily Atenolol 50 mg tablet Discontinued 50 MG PO Daily October 04, 2018 11:00pm December 12, 2023 11:53am cyclobenzaprine hydrochloride 10 mg oral tablet (6 [...] Days Active lisinopril 5 mg oral tablet (20 sources) Angiotensin Converting Enzyme Inhibitor Start: End: take 1 tablet by mouth once daily Lisinopril 5 mg tablet Active 5 MG PO Daily February 12, 2024 12:59pm Start: 12-08-2023 End: 02-12-2024 take 1 tablet by mouth once daily Lisinopril 5 mg tablet Discontinued 0 .ROUTE .COMPLEX December 08, 2023 7:55am February 12, 2024 12:54pm TAKE 1 TABLET BY MOUTH EVERY DAY Start: 09-07-2023 End: 12-08-2023 take 1 tablet by mouth once daily Lisinopril 5 mg tablet Discontinued 1 TAB PO Daily September 06, 2023 11:00pm December 08, 2023 7:56am FreeTextSig: TAKE 1 TABLET BY MOUTH EVERY DAY; Note: Source Status: Continue; Provider: Edgar Ramirez ( ) take 1 tablet by nia th once daily Lisinopril 5 MG TAKE 1 TABLET BY MOUTH EVERY DAY Active meloxicam 15 mg oral tablet (6 sources) Nonsteroidal Anti-inflammatory Drug take 1 tablet by mouth once daily Meloxicam 15 MG TAKE 1 TABLET BY MOUTH EVERY DAY Oral for 30 Days Active Completed/Discontinued Medications Medication Drug Class(es) Dates Sig (Normalized) Sig (Original) atorvastatin 20 mg oral tablet (20 sources) HMG-CoA Reductase Inhibitor Start: 09-07-2023 End: 02-12-2024 take 1 tablet by mouth once daily in the evening Atorvastatin 20 mg tablet Discontinued 20 MG PO Every evening February 12, 2024 12:52pm February 12, 2024 12:59pm FreeTextSig: TAKE 1 TABLET BY MOUTH EVERY EVENING; Note: Source Status: Continue; Provider: Edgar Ramirez ( ) take 1 tablet by nia th once daily in the evening Atorvastatin Calcium 20 MG TAKE 1 TABLET BY MOUTH EVERY EVENING Active diclofenac sodium 75 mg delayed release oral tablet (20 sources) Nonsteroidal Anti-inflammatory Drug Start: 09-07-2023 End: 02-12-2024 take 1 tablet by mouth twice daily Diclofenac Sodium 75 mg tablet,delayed release (DR/EC) Discontinued 75 MG PO Twice daily 180 90 February 12, 2024 12:53pm February 12, 2024 12:59pm Start: 10-05-2018 End: 09-07-2023 Diclofenac Sodium (Voltaren) 1 % Gel Discontinued 1 APPLIC TOPICAL Twice daily as needed for Pain October 04, 2018 11:00pm September 07, 2023 1:07pm Problems Active Problems Problem Classification Problem Date Documented Date Episodic/Chronic Cardiac dysrhythmias (2 sources) Supraventricular tachycardia; Translations: [Supraventricular tachycardia] Onset: 06-15-2016 Chronic Crushing injury or internal injury (8 sources) Crushing injury of ankle; Translations: [Crushing injury of left ankle, initial encounter] Episodic Disorders of lipid metabolism (10 sources) Pure hypercholesterolemia; Translations: [Pure hypercholesterolemia, unspecified] Chronic Essential hypertension (15 sources) Essential hypertension; Translations: [Essential (primary) hypertension] Chronic Immunizations and screening for infectious disease (2 sources) Vaccination given; Translations: [Encounter for immunization] Episodic Joint disorders and dislocations; trauma-related (1 source) Derangement of knee; Translations: [Unspecified internal derangement of knee] Chronic Other circulatory disease (1 source) Personal history of other diseases of the circulatory system Episodic Other circulatory disease (5 sources) History of paroxysmal supraventricular tachycardia; Translations: [Personal history of other diseases of the circulatory system] 02-10-2024 Episodic Comment on above: s/p ablation Other connective tissue disease (1 source) Plantar fascial fibromatosis; Translations: [Plantar fascial fibromatosis] Episodic Other nervous system disorders (20 sources) Chronic pain; Translations: [Other chronic pain] 09-07-2023 Chronic Other nervous system disorders (16 sources) Other chronic pain; Translations: [Other chronic pain] Onset: 04-03-2024 09-07-2023 Chronic Other nervous system disorders (2 sources) Chronic pain syndrome; Translations: [Chronic pain syndrome] 01-30-2024 Chronic Other non-traumatic joint disorders (8 sources) Shoulder joint pain; Translations: [Pain in left shoulder] Episodic Other nutritional; endocrine; and metabolic disorders (1 source) Overweight; Translations: [Overweight] Episodic Other screening for suspected conditions (not mental disorders or infectious disease) (1 source) Encounter for screening for malignant neoplasm of prostate Episodic Other upper respiratory infections (2 sources) Acute maxillary sinusitis; Translations: [Acute maxillary sinusitis, unspecified] Onset: 06-06-2016 Episodic Residual codes; unclassified (1 source) Procedure and treatment not carried out because of patient's decision for unspecified reasons Episodic Spondylosis; intervertebral disc disorders; other back [...] Onset: 03-16-2017 Resolved: 10-05-2021 Episodic Substance-related disorders (16 sources) Tobacco user; Translations: [Nicotine dependence, cigarettes, [...] Test Name Value Interpretation Reference Range Facil ity MR lumbar spine wo/w conon 0 09-15-2023 MR lumbar spine wo/w con [facility] [place] [address] MRI Report Signed Patient: Remington Crawford MR#: [id number] : 1970 Acct:[id number] Age/Sex: 53 / M ADM Date: 09/15/23 Loc: Room: Type: [facility] Attending Dr: Immanuel Madrid MD Copies to: Immanuel Madrid MD Ordering Provider: Immanuel Madrid MD Date of Service: 09/15/23 MR/MR lumbar spine wo/w con: M51.26 - Other intervertebral disc displacement, lumbar r... MRI Lumbar Spine with and withoutcontrast TECHNIQUE: Multiplanar T1 and T2-weighted imaging of lumbar spine obtained without contrast.18 cc of ProHance HISTORY: Low back pain with radiation to legs COMPARISON: 07/08/2021 presurgical imaging The last fully segmented vertebral pair is operationally defined as L5/S1. POST SURGERY CHANGES: L4-5 interbody and posterior left fusion hardware BONE MARROW INFILTRATION: None BONE MARROW EDEMA: None BONY ALIGNMENT: Stable SPINAL CANAL: No significant central canal narrowing. LUMBAR FRACTURE: None BONY LESIONS: None KIDNEYS: No hydronephrosis is identified. AORTA: No aortic aneurysm is seen. CONUS MEDULLARIS : The distal spinal cord is in adequate position without abnormality. Additional findings CONJOINED NERVE ROOT: None Lower thoracic level: Unremarkable L1-2 :Unremarkable L2-3: Unremarkable L3-4: Mild spondylosis. Diffuse disc bulge. Patent central canal. Mild posterior element hypertrophy. Mild bilateral neural foraminal narrowing L4-5: Postsurgical changes. Patent central canal. Mild bilateral neural foraminal narrowing L5-S1: Similar moderate spondylosis. Similar diffuse disc bulge. Patent central canal. Posterior element hypertrophy. Mild bilateral neural foraminal narrowing MR/MR lumbar spine wo/w con IMPRESSION: Unremarkable L4-5 postsurgical changes. No pathologic enhancement. Patent central canal. Similar discovertebral degenerative changes. Pre-MRI plain film assessment: None Impression dictated by: Dung Milner M.D.09/15/2023 4:23 PM Dictation Location: [place] [address] Transcribed By: [facility] 09/15/23 1623 Dictated By: Dung Milner DO 09/15/23 1612 Signed By: 09/15/23 1623 Normal [facility] XR lumbar spine AP/LAT/FLX/E XTon 09-15-2023 XR lumbar spine AP/LAT/FLX/EXT [facility] [place] [address] XRay Report Signed Patient: Remington Crawford MR#: [id number] : 1970 Acct:[id number] Age/Sex: 53 / M ADM Date: 09/15/23 Loc: MR Room: Type: [facility] Attending Dr: Immanuel Madrid MD Copies to: Immanuel Madrid MD Ordering Provider: Immanuel Madrid MD Date of Service: 09/15/23 XR/XR lumbar spine AP/LAT/FLX/EXT: M51.26 - Other intervertebral disc displacement, lumbar r... LUMBAR SPINE - 4 views CLINICAL HISTORY: Low back pain that radiates down both legs with numbness and tingling for 2 years COMPARISON: Lumbar spine 05/18/2021. FINDINGS: Posterior hardware fixation L4-L5 without radiographic complication. Vertebral body heights appear maintained. Mild disc space narrowing L5-S1. No pathological motion. SI joints demonstrate degenerative change. XR/XR lumbar spine AP/LAT/FLX/EXT IMPRESSION: NO HARDWARE COMPLICATION. MILD DISC SPACE NARROWING L5-S1. Impression dictated by: Abel Arnold Jr., D.ODenis09/15/2023 3:33 PM Dictation Location: [place] [address] Transcribed By: [facility] 09/15/231532 Dictated By: Abel Arnold Jr, DO 09/15/231531 Signed By: 09/15/23 153 Normal [facility] Covid-19 PCR (CVDTB)on 07-30 SARS-CoV-2 (COVID-19) RNA RYLIE+probe Ql (Unsp spec) Not detected Normal NOT DETECTED [facility] Comment on above: Result Comment: This test is not yet janett roved or cleared by the [place] FDA. When there are no FDA-approved or cleared tests available, and other criteria are met, FDA can make tests available under an emergency access mechanism called an Emergency Use Authorization (EUA). The EUA for this test is supported by the [place] of Health and Human Service's (HHS's) declaration [...] consistent with SARS-CoV-2. Performed By: #### [facility] #### [facility] [address] [place] [address] Dr. Yanet Li Covid-19 PCR (CVDTB)on SARS-CoV-2 (COVID-19) RNA RYLIE+probe Ql (Unsp spec) Not detected Normal NOT DETECTED [facility] Comment on above: Result Comment: This test is not yet janett roved or cleared by the [place] FDA. When there are no FDA-approved or cleared tests available, and other criteria are met, FDA can make tests available under an emergency access mechanism called an Emergency Use Authorization (EUA). The EUA for this test is supported by the [place] of Health and Human Service's (HHS's) declaration [...] consistent with SARS-CoV-2. Performed By: #### [facility] #### [facility] [address] [place] [address] Dr. Yanet Li Vital Signs Date Time Vital Sign Value Performing Clinician Facility 03-13-2024 16:04-0500 Body weight 90.32 kg James Ball DO Work Phone: [facility] 03-13-2024 16:04-0500 Diastolic blood pressure 84 mm[Hg] James Ball DO Work Phone: [facility] 03-13-2024 16:04-0500 Heart rate 78 /min James Ball DO Work Phone: [facility] 03-13-2024 16:04-0500 SaO2% (BldA) [Mass fraction] 97 % James Ball DO Work Phone: [facility] 03-13-2024 16:04-0500 Systolic blood pressure 122 mm[Hg] James Ball DO Work Phone: [facility] 03-06-2024 11:05-0500 Diastolic blood pressure 89 mm[Hg] DO James Ball Work Phone: [facility] 03-06-2024 11:05-0500 Heart rate 63 /min DO James Ball Work Phone: [facility] 03-06-2024 11:05-0500 Respiratory rate 16 /min DO James Ball Work Phone: [facility] 03-06-2024 11:05-0500 SaO2% (BldA) [Mass fraction] 95 % DO James Ball Work Phone: [facility] 03-06-2024 11:05-0500 Systolic blood pressure 142 mm[Hg] DO James Ball Work Phone: [facility] 03-06-2024 10:25-0500 Inhaled oxygen flow rate 3 L/min DO James Ball Work Phone: [facility] 03-06-2024 08:59-0500 Body height 185.42 cm DO James Ball Work Phone: [facility] 03-06-2024 08:59-0500 Body weight 88.45 kg DO James Ball Work Phone: [facility] 02-28-2024 14:17-0400 Diastolic blood pressure 70 mm[Hg] DO James Ball Work Phone: [facility] 02-28-2024 14:17-0400 Heart rate 72 /min DO James Ball Work Phone: [facility] 02-28-2024 14:17-0400 SaO2% (BldA) [Mass fraction] 99 % DO James Ball Work Phone: [facility] 02-28-2024 14:17-0400 Systolic blood pressure 120 mm[Hg] DO James Ball Work Phone: [facility] 02-21-2024 10:00-0400 Diastolic blood pressure 74 mm[Hg] DO James Ball Work Phone: [facility] 02-21-2024 10:00-0400 Heart rate 72 /min DO James Ball Work Phone: [facility] 02-21-2024 10:00-0400 Respiratory rate 16 /min DO James Ball Work Phone: [facility] 02-21-2024 10:00-0400 SaO2% (BldA) [Mass fraction] 98 % DO James Ball Work Phone: [facility] 02-21-2024 10:00-0400 Systolic blood pressure 125 mm[Hg] DO James Ball Work Phone: [facility] 02-21-2024 09:24-0400 Inhaled oxygen flow rate 3 L/min DO James Ball Work Phone: [facility] 02-21-2024 08:34-0400 Body height 182.88 cm DO James Ball Work Phone: [facility] 02-21-2024 08:34-0400 Body weight 88.45 kg DO James Ball Work Phone: [facility] 02-12-2024 13:32-0400 Body height 182.88 cm DO James Ball Work Phone: [facility] 02-12-2024 13:32-0400 Body mass index (BMI) [Ratio] 27.1 kg/m2 DO James Ball Work Phone: [facility] 02-12-2024 13:32-0400 Body weight 90.77 kg DO James Ball Work Phone: [facility] 02-12-2024 13:32-0400 Diastolic blood pressure 85 mm[Hg] DO James Ball Work Phone: [facility] 02-12-2024 13:32-0400 Heart rate 65 /min DO James Ball Work Phone: [facility] 02-12-2024 13:32-0400 Respiratory rate 12 /min DO James Ball Work Phone: [facility] 02-12-2024 13:32-0400 Systolic blood pressure 134 mm[Hg] DO James Ball Work Phone: [facility] 02-07-2024 14:35-0400 Body height 182.88 cm DO James Ball Work Phone: [facility] 02-07-2024 14:35-0400 Body mass index (BMI) [Ratio] 27.1 kg/m2 DO James Ball Work Phone: [facility] 02-07-2024 14:35-0400 Body weight 90.88 kg DO James Ball Work Phone: [facility] 02-07-2024 14:35-0400 Diastolic blood pressure 66 mm[Hg] DO James Ball Work Phone: [facility] 02-07-2024 14:35-0400 Heart rate 69 /min DO James Ball Work Phone: [facility] 02-07-2024 14:35-0400 Respiratory rate 18 /min DO James Ball Work Phone: [facility] 02-07-2024 14:35-0400 SaO2% (BldA) [Mass fraction] 96 % DO James Ball Work Phone: [facility] 02-07-2024 14:35-0400 Systolic blood pressure 118 mm[Hg] DO James Ball Work Phone: [facility] 01-31-2024 10:32-0400 Diastolic blood pressure 85 mm[Hg] DO James Ball Work Phone: [facility] 01-31-2024 10:32-0400 Heart rate 67 /min DO James Ball Work Phone: [facility] 01-31-2024 10:32-0400 Respiratory rate 16 /min DO James Ball Work Phone: [facility] 01-31-2024 10:32-0400 SaO2% (BldA) [Mass fraction] 99 % DO James Ball Work Phone: [facility] 01-31-2024 10:32-0400 Systolic blood pressure 125 mm[Hg] DO James Ball Work Phone: [facility] 01-31-2024 09:53-0400 Inhaled oxygen flow rate 3 L/min DO James Ball Work Phone: [facility] 01-31-2024 09:01-0400 Body height 182.88 cm DO James Ball Work Phone: [facility] 01-31-2024 09:01-0400 Body weight 88.45 kg DO James Ball Work Phone: [facility] 01-17-2024 14:26-0400 Body weight 89.86 kg DO James Ball Work Phone: [facility] 01-17-2024 14:26-0400 Diastolic blood pressure 80 mm[Hg] DO James Ball Work Phone: [facility] 01-17-2024 14:26-0400 Heart rate 66 /min DO James Ball Work Phone: [facility] 01-17-2024 14:26-0400 SaO2% (BldA) [Mass fraction] 98 % DO James Ball Work Phone: [facility] 01-17-2024 14:26-0400 Systolic blood pressure 126 mm[Hg] DO James Ball Work Phone: [facility] 12-25-2023 13:26-0400 Diastolic blood pressure 70 mm[Hg] DO James Ball Work Phone: [facility] 12-25-2023 13:26-0400 Heart rate 83 /min DO James Ball Work Phone: [facility] 12-25-2023 13:26-0400 SaO2% (BldA) [Mass fraction] 97 % DO James Ball Work Phone: [facility] 12-25-2023 13:26-0400 Systolic blood pressure 120 mm[Hg] DO James Ball Work Phone: [facility] 12-13-2023 10:10-0400 Diastolic blood pressure 97 mm[Hg] DO James Ball Work Phone: [facility] 12-13-2023 10:10-0400 Heart rate 60 /min DO James Ball Work Phone: [facility] 12-13-2023 10:10-0400 Respiratory rate 18 /min DO James Ball Work Phone: [facility] 12-13-2023 10:10-0400 SaO2% (BldA) [Mass fraction] 99 % DO James Ball Work Phone: [facility] 12-13-2023 10:10-0400 Systolic blood pressure 151 mm[Hg] DO James Ball Work Phone: [facility] 12-13-2023 09:30-0400 Inhaled oxygen flow rate 3 L/min DO James Ball Work Phone: [facility] 12-13-2023 08:29-0400 Body height 185.42 cm DO James Ball Work Phone: [facility] 12-13-2023 08:29-0400 Body weight 88.45 kg DO James Ball Work Phone: [facility] 11-29-2023 10:08-0400 Diastolic blood pressure 76 mm[Hg] DO James Ball Work Phone: [facility] 11-29-2023 10:08-0400 Heart rate 68 /min DO James Ball Work Phone: [facility] 11-29-2023 10:08-0400 Respiratory rate 16 /min DO James Ball Work Phone: [facility] 11-29-2023 10:08-0400 SaO2% (BldA) [Mass fraction] 100 % DO James Ball Work Phone: [facility] 11-29-2023 10:08-0400 Systolic blood pressure 142 mm[Hg] DO James Ball Work Phone: [facility] 11-29-2023 09:30-0400 Inhaled oxygen flow rate 3 L/min DO James Ball Work Phone: [facility] 11-29-2023 08:28-0400 Body height 182.88 cm DO James Ball Work Phone: [facility] 11-29-2023 08:28-0400 Body weight 87.08 kg DO James Ball Work Phone: [facility] 10-30-2023 11:43-0400 Body weight 88.9 kg DO James Ball Work Phone: [facility] 10-30-2023 11:43-0400 Heart rate 68 /min DO James Ball Work Phone: [facility] 10-30-2023 11:43-0400 SaO2% (BldA) [Mass fraction] 99 % DO James Ball Work Phone: [facility] 10-11-2023 09:40-0400 Diastolic blood pressure 85 mm[Hg] DO James Ball Work Phone: [facility] 10-11-2023 09:40-0400 Heart rate 56 /min DO James Ball Work Phone: [facility] 10-11-2023 09:40-0400 Respiratory rate 16 /min DO James Ball Work Phone: [facility] 10-11-2023 09:40-0400 SaO2% (BldA) [Mass fraction] 98 % DO James Ball Work Phone: [facility] 10-11-2023 09:40-0400 Systolic blood pressure 120 mm[Hg] DO James Ball Work Phone: [facility] 10-11-2023 08:59-0400 Inhaled oxygen flow rate 3 L/min DO James Ball Work Phone: [facility] 10-11-2023 07:57-0400 Body height 185.42 cm DO James Ball Work Phone: [facility] 10-11-2023 07:57-0400 Body weight 88.45 kg DO James Ball Work Phone: [facility] 10-02-2023 13:34-0400 Diastolic blood pressure 60 mm[Hg] DO James Ball Work Phone: [facility] 10-02-2023 13:34-0400 Heart rate 77 /min DO James Ball Work Phone: [facility] 10-02-2023 13:34-0400 SaO2% (BldA) [Mass fraction] 99 % DO James Ball Work Phone: [facility] 10-02-2023 13:34-0400 Systolic blood pressure 100 mm[Hg] DO James Ball Work Phone: [facility] 09-15-2023 12:23-0400 Body height 185.42 cm DO James Ball Work Phone: [facility] 09-15-2023 12:23-0400 Body weight 88.45 kg DO James Ball Work Phone: [facility] 09-07-2023 14:05-0400 Body weight 93.04 kg [facility] 09-07-2023 14:05-0400 Diastolic blood pressure 90 mm[Hg] [facility] 09-07-2023 14:05-0400 Heart rate 93 /min [facility] 09-07-2023 14:05-0400 SaO2% (BldA) [Mass fraction] 98 % [facility] 09-07-2023 14:05-0400 Systolic blood pressure 140 mm[Hg] [facility] 06-12-2023 11:00-0500 Body height 182.88 cm James Ball Other [facility] Other 06-12-2023 11:00-0500 Body mass index (BMI) [Ratio] 27.61 kg/m2 James Ball Other [facility] [employer] Other 06-12-2023 11:00-0500 Body weight 92.35 kg James Ball Other [facility] Other 06-12-2023 11:00-0500 Diastolic blood pressure 86 mm[Hg] James Ball Other [employer] Other 06-12-2023 11:00-0500 Respiratory rate 12 /min James Ball Other [employer] Other 06-12-2023 11:00-0500 Systolic blood pressure 131 mm[Hg] James Ball Other [employer] Other 02-07-2023 10:30-0400 Body height 182.88 cm James Ball Other [employer] Other 02-07-2023 10:30-0400 Body mass index (BMI) [Ratio] 27.61 kg/m2 James Ball Other [employer] Other 02-07-2023 10:30-0400 Body weight 92.35 kg James Ball Other [employer] Other 02-07-2023 10:30-0400 Diastolic blood pressure 84 mm[Hg] James Ball Other [employer] Other 02-07-2023 10:30-0400 Respiratory rate 12 /min James Ball Other [employer] Other 02-07-2023 10:30-0400 Systolic blood pressure 130 mm[Hg] James Ball Other [employer] Other 10-05-2021 14:20-0400 Body height 182.88 cm George Conde Other [employer] Other 10-05-2021 14:20-0400 Body mass index (BMI) [Ratio] 27.12 kg/m2 George Conde Other [employer] Other 10-05-2021 14:56-3141 Body weight 90.72 kg George Conde Other [employer] Other Encounters Encounter Date Encounter Type Care Provider Facility Start: 04-18-2024 End: 04-18-2024 ambulatory James Hernández Facility:[facility] Start: 04-03-2024 End: 04-03-2024 ambulatory Immanuel Madrid Facility:[facility] Start: 03-13-2024 End: 03-13-2024 ambulatory James Hernández DO Work Phone: [facility] Work Phone: Start: 03-13-2024 End: 03-13-2024 Patient encounter procedure James Hernández DO Work Phone: [facility] Work Phone: Start: 03-06-2024 Non-patient / Non-visit Carl Hernández DO Work Phone: [facility] Work Phone: Start: 03-06-2024 End: 03-06-2024 Admission to same day surgery center DO James Hernández Work Phone: [facility] Work Phone: Start: 03-06-2024 End: 03-06-2024 ambulatory DO James Hernández Work Phone: [facility] Work Phone: Start: 02-28-2024 End: 02-28-2024 ambulatory DO James Hernández Work Phone: [facility] Work Phone: Start: 02-28-2024 End: 02-28-2024 Patient encounter procedure DO James Ball Work Phone: [facility] Work Phone: Start: 02-21-2024 Non-patient / Non-visit DO Dylan garay Ball Work Phone: [facility] Work Phone: Start: 02-21-2024 End: 02-21-2024 Admission to same day surgery center DO James Ball Work Phone: [facility] Work Phone: Start: 02-21-2024 End: 02-21-2024 ambulatory DO James Ball Work Phone: [facility] Work Phone: Start: 02-12-2024 End: 02-12-2024 ambulatory DO James Ball Work Phone: [facility] Work Phone: Start: 02-12-2024 End: 02-12-2024 Patient encounter procedure DO James Ball Work Phone: [facility] Work Phone: Start: 02-07-2024 End: 02-07-2024 ambulatory DO James Ball Work Phone: [facility] Work Phone: Start: 02-07-2024 End: 02-07-2024 Patient encounter procedure DO James Ball Work Phone: [facility] Work Phone: Start: 01-31-2024 Non-patient / Non-visit DO Dylan garay Ball Work Phone: [facility] Work Phone: Start: 01-31-2024 End: 01-31-2024 Admission to same day surgery center DO James Ball Work Phone: [facility] Work Phone: Start: 01-31-2024 End: 01-31-2024 ambulatory DO James Ball Work Phone: [facility] Work Phone: Start: 01-30-2024 End: 01-30-2024 Holland Sanchez Denbesten PhD Work Phone: [facility] Start: 01-30-2024 End: 01-30-2024 Bamboo flowsheet Daniel Lopez PhD Work Phone: [facility] Start: 01-30-2024 End: 01-30-2024 Patient encounter procedure Daniel Lopez PhD Work Phone: [facility] Comment on above: Chronic pain syndrom e (Primary Dx); Lumbar radiculopathy; Failed back surgical syndrome; Other intervertebral disc displacement, lumbar region Start: 01-30-2024 End: 01-30-2024 ambulatory DANIEL LOPEZ Not Available Start: 01-17-2024 End: 01-17-2024 ambulatory DO James Hernández Work Phone: [facility] Work Phone: Start: 01-17-2024 End: 01-17-2024 Patient encounter procedure DO James Hernández Work Phone: [facility] Work Phone: Start: 12-25-2023 End: 12-25-2023 ambulatory DO James Hernández Work Phone: [facility] Work Phone: Start: 12-25-2023 End: 12-25-2023 Patient encounter procedure DO James Hernández Work Phone: [facility] Work Phone: Start: 12-13-2023 Non-patient / Non-visit DO Dylan Hernández Work Phone: [facility] Work Phone: Start: 12-13-2023 End: 12-13-2023 Admission to same day surgery center DO James Ball Work Phone: [facility] Work Phone: Start: 12-13-2023 End: 12-13-2023 ambulatory DO James Ball Work Phone: [facility] Work Phone: Start: 11-29-2023 Non-patient / Non-visit DO Dylan garay Ball Work Phone: [facility] Work Phone: Start: 11-29-2023 End: 11-29-2023 Admission to same day surgery center DO James Ball Work Phone: [facility] Work Phone: Start: 11-29-2023 End: 11-29-2023 ambulatory DO James Ball Work Phone: [facility] Work Phone: Start: 10-30-2023 End: 10-30-2023 ambulatory DO James Ball Work Phone: [facility] Work Phone: Start: 10-30-2023 End: 10-30-2023 Patient encounter procedure DO James Ball Work Phone: [facility] Work Phone: Start: 10-11-2023 Non-patient / Non-visit DO Dylan garay Ball Work Phone: [facility] Work Phone: Start: 10-11-2023 End: 10-11-2023 Admission to same day surgery center DO James Ball Work Phone: [facility] Work Phone: Start: 10-11-2023 End: 10-11-2023 ambulatory DO James Ball Work Phone: [facility] Work Phone: Start: 10-02-2023 End: 10-02-2023 ambulatory DO James Ball Work Phone: [facility] Work Phone: Start: 10-02-2023 End: 10-02-2023 Patient encounter procedure DO James Ball Work Phone: [facility] Work Phone: Start: 09-15-2023 End: 09-15-2023 Patient encounter procedure DO James Hernández Work Phone: [facility] Work Phone: Start: 09-15-2023 End: 09-15-2023 ambulatory DO James Hernández Work Phone: [facility] Work Phone: Start: 09-07-2023 End: 09-07-2023 ambulatory [facility] Work Phone: Start: 09-07-2023 End: 09-07-2023 Patient encounter procedure [facility] Work Phone: Start: 06-12-2023 End: 06-12-2023 ambulatory James Hernández Other [employer] Other Start: 06-12-2023 Encounter for genera l adult medical examination without abnormal findings James Hernández [facility] Start: 06-12-2023 Periodic preventive med est patient 40-64yrs James Hernández [facility] Start: 02-07-2023 End: 02-07-2023 ambulatory James Hernández Other [employer] Other Start: 02-07-2023 Office outpatient vi sit 15 minutes James Hernández [facility] Start: 11-29-2022 End: 11-29-2022 ambulatory James Hernández Other [employer] Other Start: 11-29-2022 Telephone encounter James Hernández [facility] Start: 10-20-2022 End: 10-20-2022 ambulatory George Conde Other [employer] Other Start: 10-20-2022 Telephone encounter George Conde [facility] Start: 10-19-2022 End: 10-19-2022 ambulatory James Hernández Other [employer] Other Start: 10-19-2022 Telephone encounter James Hernández [facility] Start: 08-17-2022 End: 08-17-2022 ambulatory Georgebecky Conde Other [employer] Other Start: 08-17-2022 [address] George Conde [facility] Start: 08-15-2022 End: 08-16-2022 ambulatory IRISH MONK Facility:[facility] Start: 07-14-2022 End: 07-15-2022 ambulatory BEBETO FITZPATRICK . Facility:[facility] Start: 06-28-2022 End: 06-28-2022 ambulatory CHELA NAZARIO Facility:[facility] Start: 06-22-2022 End: 06-22-2022 ambulatory James Hernández Other [employer] Other Start: 06-22-2022 Telephone encounter James MERCEDES [facility] Start: 06-09-2022 End: 06-10-2022 ambulatory BEBETO FITZPATRICK . Facility:[facility] Start: 06-03-2022 End: 06-04-2022 ambulatory IRISH MONK Facility:[facility] Start: 05-10-2022 End: 05-10-2022 ambulatory CHELA NAZARIO Facility:[facility] Start: 05-08-2022 Encounter for preprocedural laboratory examination DR KRISTIN DE LEON . [facility] Start: 05-06-2022 End: 05-07-[address] KRISTIN DE LEON . Facility:[facility] Start: 05-06-2022 End: 05-07-2022 Encounter for preprocedural laboratory examination DR KRISTIN DE LEON . Facility:[facility] Start: 04-29-2022 End: 04-30-2022 ambulatory CHELA NAZARIO Facility:[facility] Start: 04-05-2022 End: 04-05-[address] JAMES HERNÁNDEZ Facility:[facility] Start: 03-03-2022 End: 03-04-[address] JAMES HERNÁNDEZ Facility:[facility] Start: 02-08-2022 End: 02-08-[address] JAMES HERNÁNDEZ Facility:[facility] Start: 01-25-2022 End: 01-26-[address] KRISTIN DE LEON . Facility:[facility] Start: 12-31-2021 End: 02-11-2022 ambulatory IRISH MONK Facility:[facility] Start: 10-21-[address] JAMES HERNÁNDEZ Facili ty:[facility] Start: 10-05-2021 End: 10-05-2021 ambulatory George Conde Other [facility] Other Start: 10-05-2021 Office outpatient ne w 30 minutes George Conde [facility] Start: 09-24-2021 End: 09-25-2021 ambulatory HIRA NÉSTOR . Facility:[facility] Start: 09-10-2021 End: 09-10-2021 ambulatory HIRA PALM . Facility: Start: 08-16-2021 Adult health examination Josse Hernández Other [facility] Other Procedures Date Procedure Procedure Detail Performing Clinician Start: 03-06-2024 Local anesthetic lum bar facet joint nerve block DO James Hernández Work Phone: Start: 02-21-2024 Local anesthetic lum bar facet joint nerve block DO James Hernández Work Phone: Start: 01-31-2024 Injection of local anesthetic into sacroiliac joint DO James Hernández Work Phone: Start: 12-13-2023 Injection of spinal epidural space DO James Hernández Work Phone: Start: 11-29-2023 Injection of spinal epidural space DO James Hernández Work Phone: Start: 10-11-2023 Local anesthetic sac ral epidural block DO James Hernández Work Phone: Start: 09-15-2023 MRI of lumbar spine with contrast DO James Hernández Work Phone: Start: 09-15-2023 X-ray of lumbar spin e, four views DO James Hernández Work Phone: Depression screening Jasmina Hernández Other Screening for malign ant neoplasm of prostate James Hernández Other Plan of Treatment Date Care Activity Detail Author Start: 03-06-2024 [facility] Start: 02-21-2024 [facility] Start: 01-31-2024 [facility] Start: 12-31-2023 Influenza vaccination Influenza Vacc ine (#1) [facility] Start: 12-25-2023 Patient referral [facility] Work Phone: Start: 12-13-2023 [facility] Start: 11-29-2023 [facility] Start: 10-11-2023 [facility] Start: 10-13-2022 ambulatory Ambulatory Facility:[facility] 1 Start: 1970 Screening for malign ant neoplasm of colon [facility] MR Lumbar spine WO a nd W contrast IV [facility] Patient Education [facility] Work Phone: Patient referral [facility] Work Phone: XR Lumbar spine 4 Views [facility] Immunizations Immunization Date Immunization Notes Care Provider Fa [facility] 02-07-2023 influenza, injectabl e, quadrivalent, preservative free James Hernández Other [facility] 02-07-2023 influenza virus vaccine, unspecified formulation Daniel Lopez PhD Work Phone: [facility] 02-15-2021 influenza virus vaccine, split virus (incl. purified surface antigen) James Hernández Other [employer] Other 02-15-2021 influenza virus vaccine, unspecified formulation [facility] Payers Date Payer Category Payer Managed Care HMO (unspecified) AET[employer] AETNA [id number] 2024-Present [address] [place] [address] HMO [id number] 2024 Unknown AUBREY SEDGWIC K [id number] 2024-Present [address] [address] [place] [address] [id number] [id number] 2024 Unknown [id number] 2022 Private Health Insurance [id number] 2.16.840.1.952082.19 1971 Unknown [id number] 2.16.840.1.538810.3.579. 2.593 1971 Unknown [id number] 2.16.840.1.592980.3.579. 2.593 1971 Unknown [id number] 2.16.840.1.045790.3.579. 2.593 1971 Unknown [id number] 2.16.840.1.104528.3.579. 2.593 1971 Unknown [id number] 2.16.840.1.125447.3.579. 2.593 1971 Unknown [id number] 2.16.840.1.612976.3.579. 2.593 1971 Unknown [id number] 2.16.840.1.664948.3.579. 2.593 1971 Unknown [id number] 2.16.840.1.390675.3.579. 2.593 1971 Unknown [id number] 2.16.840.1.944799.3.579. 2.593 1971 Unknown [id number] 2.16.840.1.248513.3.579. 2.593 1971 Unknown [id number] 2.16.840.1.110347.3.579. 2.593 1971 Unknown [id number] 2.16.840.1.025752.3.579. 2.593 1971 Unknown [id number] 2.16.840.1.255149.3.579. 2.593 1971 Unknown [id number] 2.16.840.1.044574.3.579. 2.593 1971 Unknown [id number] 2.16.840.1.047775.3.579. 2.593 1971 Unknown [id number] 2.16.840.1.964971.3.579. 2.593 1971 Unknown [id number] 2.16.840.1.957421.3.579. 2.593 1971 Unknown [id number] 2.16.840.1.092572.3.579. 2.1259 1959 Self-pay 1959 Unknown [id number] 2.840.1.157066.19 1959 Unknown [id number] 1959 Unknown [id number] Blue Cross Blue Shield [id number] 2.840.1.642308.19 Private Health Insurance [facility] [id number] Unknown [id number] 2.840.1.280633.3.579. 2.531 Unknown [id number] 2.840.1.264925.3.579. 2.531 Unknown [id number] 2.16.840.1.920770.3.579. 2.531 Unknown [id number] 2.16840.1.800713.3.579. 2.531 Unknown [id number] 2.16840.1.794479.3.579. 2.531 Unknown [id number] 2.16840.1.980812.3.579. 2.531 Unknown [id number] 2.16.840.1.067363.3.579. 2.531 Unknown [id number] 2.16.840.1.823417.3.579. 2.531 Unknown [id number] 2.16840.1.745287.3.579. 2.531 Worker's Compensation Aubrey [facility] [id number] Social History Date Type Detail Facility Start: 01-30-2024 Sex Assigned At N [employer] Other Start: 06-16-2016 Tobacco smoking stat [facility] Ex-smoker (finding) [facility] Start: 1970 Sex Assigned At Male F [facility] Start: 12-13-2023 End: 02-21-2024 Tobacco smoking status [facility] Smoker (finding) [facility] Start: 01-30-2024 [facility] History of tobacco use [facility] Start: 01-30-2024 Alcoholic beverage intake Current drinker of alcohol (finding) [facility] Start: 01-30-2024 History of Social function [facility] Start: 1970 Sex assigned at Not on file N [facility] Start: 03-13-2024 Sex Male (finding) [facility] Goals Date Patient Goal Desired Activity /State Clinical Notes 10-05-2021 to 01-30-2024 Daniel Lopez, PhD - 01/30/2024 10:00 AM EDT Note Date & Type Note Facility 01-30-2024 History of Presen t illness Narrative Images from the original note were not included. Daniel Lopez, PhD Spinal Cord Stimulator/Pain Pump Candidate Evaluation Remington Crawford is a 53 y.o. male presents in office for a Spinal Cord Stimulator/Pain Pump Candidate Evaluation. PRESENTING PROBLEM: Chronic low back pain since being injured at work on 05/15/21. Reported a 2,000 pound pallet of beer cases fell on him while at work. Initial back surgery was helpful but pain persists. Experiencing constant intensity of 3-4/10 can worsen with activity. Pain is significantly interfering with day-to-day activities, especially sleep. Conservative management has failed to yield any long-term relief. Relevant medical history includes lumbar radiculopathy, chronic pain, failed back syndrome, and other intervertebral disc displacement. Poor sleep quality due to pain, averaging 2-3 hours at best/night. No prior neurological history. Denied any psychiatric history. No history of alcohol/substance abuse or smoking. MEDICAL HISTORY/MEDICATION: HPI MEDICATIONS: Current Outpatient Medications Medication Instructions atenolol (Tenormin) 50 MG tablet .COMPLEX atorvastatin (Lipitor) 20 MG tablet 1 tablet diclofenac (Voltaren) 75 MG EC tablet Twice daily lisinopril 5 MG tablet .COMPLEX EDUCATION/VOCATION/SOCIAL: [place] language [place]e. Completed high school education. Employed as a regional refrigerated cdl truck driver, no work since the above mentioned injury. Resides with of 23 years. They have 3 children. ASSESSMENT: FINDINGS: Able to demonstrate reasonable understanding of procedure: Yes, able to appreciate procedure as well as weigh associated pros and cons. Somewhat reluctant about going through with the trial and is weighing his options. Questions addressed. Realistic post-surgical expectations: Yes, hopeful for any form of positive response in order to be more comfortable and physically active. Ability to operate device: Yes. Family/social support: Yes. History of alcohol/substance abuse: None reported. PSYCHIATRIC FINDINGS: Modified Somatic Perception Questionnaire= 31 (normal). Modified Zung Depression Index= 6 (normal). Overall Distress and Risk Assessment Method (DRAM)= At risk depressive. Bower Anxiety Inventory= 12 (mild). Pain Disability Index= 40; Severely interfering with recreation, and occupation. Moderately impacting family/home responsibilities, social activity, and sexual behavior. and occupation. Mildly interfering with self-care. COGNITION: Conversationally appears average. Denied any concerns with cognition and memory. Independent in ADLs, housework, finances, medication, and driving (short distances). Minimal physical activity aside from house/yard due to pain. CONCLUSIONS: Cognitively and psychiatrically clear to participate in above requested procedure. The mild depressive and anxiety symptoms appear largely associated with his persisting pain and associated limitations, as well as loss of work. This is expected to resolve with improved pain management. May benefit from individual psychotherapy if unable to resume meaningful work in the future. Thank you for allowing me to participate in the care of this individual. Please contact me with any questions at [phone]. documented in this encounter [facility] 12-25-2023 Chief complaint+R selvin for visit Narrative follow up after procedure December 24, 2 024 1:15pm f/u after neurosurgery consult January 17, 2024 2:12pm Back Pain January 31, 2024 8: 45am Back Pain January 31, 2024 9: 49am FOLLOW UP AFTER ROSEY SI February 07, 2024 2:33pm check up February 12, 2024 1 :28pm Arthritis February 21, 2024 8 :20am Arthritis February 21, 2024 9 :22am follow up after lumbar facet mbb February 28, 2024 2:13pm Back Pain March 06, 2024 8 :34am Back Pain March 06, 2024 10:32am f/u after bilateral L4-5 MBB March 132023 3:37pm Reason for Visit Admit Date Chronic pain December 25, 2023 1: 15pm Other intervertebral disc displacement, lumbar region December 25, 2023 1:15pm Other intervertebral disc displacement, lumbar region January 17, 2024 2:12pm Other intervertebral disc displacement, lumbar region February 07, 2024 2:33pm Hypertension February 12, 2024 1 :28pm Lumbar spondylosis February 12, 2024 1 :28pm Nicotine addiction February 12, 2024 1 :28pm Other intervertebral disc displacement, lumbar region February 28, 2024 2:13pm Other intervertebral disc displacement, lumbar region March 13, 2024 3:37pm [facility] Work Phone: [phone]) 366-157408-26-2024 Evaluation note* Diagnosis Onset Date Resolution Status Admit Date Chronic pain acute December 25, 2023 1:15pm Other intervertebral disc displacement, lumbar region acute Augu st 2023 1:15pm Other intervertebral disc displacement, lumbar region acute Sept ember 2023 2:12pm Other intervertebral disc displacement, lumbar region acute Octo 2023 2:33pm Hypertension acute January 1:28pm Lumbar spondylosis acute Octobe r 2023 1:28pm Nicotine addiction acute Octobe r 2023 1:28pm Other intervertebral disc displacement, lumbar region acute Octo kanwal 2023 2:13pm Other intervertebral disc displacement, lumbar region acute Nove mber 2023 3:37pm [facility] Work Phone: [phone]) 595-628902-12-2024 Evaluation note* Encounter Date Diagnosis Assessment Notes Treatment Notes Treatment Clinical Notes Jun, Wellness examination (ICD-10 - Z00.00) Healthy diet and exercise. Reviewed age-appropriate preventive testing recommended. Jun, Primary hypertension (ICD-10 - I10) This patient is instructed to consume a healthy, low-fat, low-salt diet. They are also encouraged to continue exercise to achieve/maintain a normal BMI. Patient is instructed on home BP measurements: - rest for 5 minutes w/o talking.- positioned w/ feet on floor and arm supported.- average best 2/3 readings w/ goal < 135/85.- update office w/ home readings in 2 weeks. Jun, Elevated cholesterol (ICD-10 - E78.00) Instructed on diet and exercise with continued statin therapy.Discussed the beneficial effects of lowering cholesterol in reducing the risk for cerebrovascular and cardiovascular disease. Jun, Cigarette nicotine dependence without complication (ICD-10 - F17.210) This patient has been encouraged to quit tobacco use immediately. They are aware of the hazards associated with tobacco use, including but not limited to respiratory infections, vascular disease and cancers. Jun, Lumbar spondylosis (ICD-10 - M47.816) The patient is instructed to avoid bending, twisting or lifting. They are to use intermittent heat and ice as needed. They may schedule a massage or gentle manipulation. They may safely use Tylenol as needed. s/p lumbar fusion in July, - remains off work w/ continued pain Jun, Screening PSA (prostate specific antigen) (ICD-10 - Z12.5) Yearly PSA and MILAGROS Jun, Colon cancer screening declined (ICD-10 - Z53.20) Refused colonoscopy or Cologuard. He denies change in appetite, bowel habits He denies melena or hematochezia [employer] Other 10-10-2023 Evaluation note* Encounter Date Diagnosis Assessment Notes Treatment Notes Treatment Clinical Notes Jan, Primary hypertension (ICD-10 - I10) [...] supraventricular tachycardia) (ICD-10 - Z86.79) s/p ablation [employer] Other 03-16-2023 NoteCONSULTATION CONSULTATION DATE: 07/14/2022 HISTORY: [...] with this plan and all questions answered.[facility] [id number] NotePAIN MANAGEMENT CONSULTATION CONSULTATION DATE: 07/14/2022 HISTORY: [...] with this plan and all questions answered.[facility] [id number] NoteCONSULTATION CONSULTATION DATE: 06/09/2022 HISTORY OF PRESENT ILLNESS: This is a 51-year-old gentleman who is a Workman's Comp case, accompanied by his [facility] accountant auditor, status post bilateral RFA of L4, L5. [...] lower extremity reflexes are intact, 2/2. DIAGNOSIS: [facility] Code M51.26, S33.5XXA and S23.3XXA PLAN: Upon Dr. Monk's recommendation, we will move to obtain approval for bilateral transforaminal epidural steroid injections of the L4 nerve root. We will discontinue the diclofenac and start him on Mobic 15 mg daily, and refill Flexeril 10 mg q.h.s. Patient does agree to this plan, will be followed up in the clinic thereafter.[facility] [id number] NoteCONSULTATION CONSULTATION DATE: 04/29/2022 HISTORY OF PRESENT [...] Pleasant, appropriate, in no acute distress. WBC accountant auditor is present with him. FOCUSED EXAM - [...] +2 bilateral patellar and Achilles reflexes. DIAGNOSIS: [facility] code M51.26, S33.8XXA, S23.3XXA. PLAN: [employer] Worker on the spot approved to move forward with bilateral radiofrequency ablations of L4-L5. Patient is in agreement with this. He will be followed up in the clinic thereafter.[facility] [id number] Note CONSULTATION CONSULTATION DATE: 03/03/2022 HISTORY OF PRESENT ILLNESS: This is a 51-year-old gentleman, who is a Workman's Comp case, presents with his accountant auditor today, status post bilateral L5 transforaminal epidural [...] Blunted bilateral patellar and Achilles reflexes. DIAGNOSIS: [facility] diagnosis is M51.26, S33.8XXA, S23.3XXA. PLAN: After much discussion with the patient, we will move forward with the #1 bilateral MBB of L4 and L5. Patient is to continue with his medications in addition to multivitamin. He will be followed up in the clinic thereafter. Patient and accountant auditor agree to move forward.[facility] [id number] NoteCONSULTATION CONSULTATION DATE: 01/25/2022 CHIEF COMPLAINT: Low back pain, bilateral leg pain. HISTORY OF PRESENT ILLNESS: This is a 51-year-old gentleman who is referred to us by Chela Nazario CNP. The patient has a work related injury. The date of injury was 05/15/2021. The patient is present with his accountant auditor. The patient describes the pain as a [...] was reviewed with the patient and the accountant auditor. PHYSICAL EXAM: Upon physical examination, this is [...] would like to proceed. CC: Chela Nazario, [facility]06-07-2022 Evaluation note* Encounter Date Diagnosis [...] have a good explanation for the pain. [employer] Other chief complaint+Reason for visit Narrative* Chief Complaint FOLLOW UP AFTER CAUD AL W/RACZ back pain back pain back pain back pain follow up after procedure f/u after neurosurgery consult Reason for Visit Other intervertebral disc displacement, lumbar region Chronic pain Other intervertebral disc displacement, lumbar region Other intervertebral disc displacement, lumbar region [facility] Work Phone: Chief complaint+Reason for visit Narrative* Chief Complaint back pain back pain back pain back pain follow up after procedure f/u after neurosurgery consult Back Pain Reason for Visit Chronic pain Other intervertebral disc displacement, lumbar region Other intervertebral disc displacement, lumbar region [facility] Work Phone: Chinc complaint+Reason for visit Narrative* Chief Complaint back pain back pain back pain back pain follow up after procedure f/u after neurosurgery consult Back Pain Back Pain FOLLOW UP AFTER RSOEY SI Reason for Visit Chronic pain Other intervertebral disc displacement, lumbar region Other intervertebral disc displacement, lumbar region Other intervertebral disc displacement, lumbar region [facility] Work Phone: Chiyg complaint+Reason for visit Narrative* Chief Complaint back pain back pain back pain back pain follow up after procedure f/u after neurosurgery consult Back Pain Back Pain FOLLOW UP AFTER ROSEY SI check up Reason for Visit Chronic pain Other intervertebral disc displacement, lumbar region Other intervertebral disc displacement, lumbar region Other intervertebral disc displacement, lumbar region Hypertension Lumbar spondylosis Nicotine addiction [facility] Work Phone: Chijf complaint+Reason for visit Narrative* Chief Complaint back pain back pain back pain back pain follow up after procedure f/u after neurosurgery consult Back Pain Back Pain FOLLOW UP AFTER ROSEY SI check up Arthritis Reason for Visit Chronic pain Other intervertebral disc displacement, lumbar region Other intervertebral disc displacement, lumbar region Other intervertebral disc displacement, lumbar region Hypertension Lumbar spondylosis Nicotine addiction [facility] Work Phone: Chicm complaint+Reason for visit Narrative* Chief Complaint back pain back pain follow up after procedure f/u after neurosurgery consult Back Pain Back Pain FOLLOW UP AFTER ROSEY SI check up Arthritis Arthritis follow up after lumbar facet mbb Reason for Visit Chronic pain Other intervertebral disc displacement, lumbar region Other intervertebral disc displacement, lumbar region Other intervertebral disc displacement, lumbar region Hypertension Lumbar spondylosis Nicotine addiction Other intervertebral disc displacement, lumbar region [facility] Work Phone: Chifu complaint+Reason for visit Narrative* Chief Complaint back pain back pain follow up after procedure f/u after neurosurgery consult Back Pain Back Pain FOLLOW UP AFTER ROSEY SI check up Arthritis Arthritis follow up after lumbar facet mbb Back Pain Reason for Visit Chronic pain Other intervertebral disc displacement, lumbar region Other intervertebral disc displacement, lumbar region Other intervertebral disc displacement, lumbar region Hypertension Lumbar spondylosis Nicotine addiction Other intervertebral disc displacement, lumbar region [facility] Work Phone: Evaluation noteNo [facility] [employer] Other Evaluation note* Diagnosis Onset Date Resolution Status Chronic pain acute Other intervertebral disc displacement, lumbar region acute [facility] Work Phone: Evaluation note* Diagnosis Onset Date Resolution Status Chronic pain acute Other intervertebral disc displacement, lumbar region acute Other intervertebral disc displacement, lumbar region acute [facility] Work Phone: Evaluation note* Diagnosis Onset Date Resolution Status Chronic pain acute Other intervertebral disc displacement, lumbar region acute Other intervertebral disc displacement, lumbar region acute Other intervertebral disc displacement, lumbar region acute [facility] Work Phone: Evaluation note* Diagnosis Onset Date Resolution Status Other intervertebral disc displacement, lumbar region acute Other intervertebral disc displacement, lumbar region acute [facility] Work Phone: Evaluation note* Diagnosis Onset Date Resolution Status Other intervertebral disc displacement, lumbar region acute Other intervertebral disc displacement, lumbar region acute Chronic pain acute Other intervertebral disc displacement, lumbar region acute [facility] Work Phone: Evaluation note* Diagnosis Onset Date Resolution Status Other intervertebral disc displacement, lumbar region acute Chronic pain acute Other intervertebral disc displacement, lumbar region acute Other intervertebral disc displacement, lumbar region acute [facility] Work Phone: Evaluation note* Diagnosis Chronic pain syndrome- Primary Lumbar radiculopathy Thoracic or lumbosacral neuritis or radiculitis, unspecified 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, lumbar region documented in this encounter [facility] HealthcareEvaluation note* Diagnosis Onset Date Resolution Status Chronic pain acute Other intervertebral disc displacement, lumbar region acute Other intervertebral disc displacement, lumbar region acute Other intervertebral disc displacement, lumbar region acute Hypertension acute Lumbar spondylosis acute Nicotine addiction acute [facility] Work Phone: Evaluation note* Diagnosis Onset Date Resolution Status Chronic pain acute Other intervertebral disc displacement, lumbar region acute Other intervertebral disc displacement, lumbar region acute Other intervertebral disc displacement, lumbar region acute Hypertension acute Lumbar spondylosis acute Nicotine addiction acute Other intervertebral disc displacement, lumbar region acute [facility] Work Phone: History general Narrative - Reported* Type Description Date Medical History Hypertension Medical History hypercholesterolemia Surgical History acl Surgical History Left Knee Surgery Surgical History Heart Ablasion Surgical History heart ablation Surgical History Cervical block Hospitalization History See Above [employer] Other History general Narrative - Reported* Type Description Date Medical History Hypertension Medical History hypercholesterolemia Surgical History acl Surgical History Left Knee Surgery Surgical History Heart Ablasion Surgical History heart ablation Surgical History Cervical block Surgical History Lumbar fusion L4-5 07/2022 Hospitalization History See Above [employer] Other Summary Purpose Family History No Family History Records Found Relationship Condition Age at Onset Recorded Date/T cezar father Patient Unknown Malignant neoplasm of esophagus Unknown Not Specified Parkinson's disease Unknown Malignant neoplasm of breast Unknown Hypertension Unknown father Unknown Malignant neoplasm Unknown Not Specified Malignant neoplasm Unknown Relationship Condition Age at Onset Recorded Date/T cezar father Malignant neoplasm of esophagus Unknown Patient Unknown Not Specified Malignant neoplasm of breast Unknown Hypertension Unknown Parkinson's disease Unknown father Unknown Malignant neoplasm Unknown Not Specified Malignant neoplasm Unknown grandparent Parkinson's disease Unknown Diabetes mellitus Unknown grandparent Neoplasm of brain Unknown Relationship Condition Age at Onset Recorded Date/T cezar father Malignant neoplasm of esophagus Unknown Patient Unknown mother Malignant neoplasm of breast Unknown Hypertension Unknown Parkinson's disease Unknown father Unknown Malignant neoplasm Unknown mother Malignant neoplasm Unknown grandparent Parkinson's disease Unknown Diabetes mellitus Unknown grandparent Neoplasm of brain Unknown Relationship Condition Age at Onset Recorded Date/T cezar father Malignant neoplasm of esophagus Unknown Patient Unknown Malignant neoplasm Unknown mother Malignant neoplasm of breast Unknown Hypertension Unknown Parkinson's disease Unknown grandparent Diabetes mellitus Unknown grandparent Neoplasm of brain Unknown Advance Directives No Advanced Directives Records Found Advance Directive Response Recorded Date/ Time Advance Directives No August 27 11:06am Advance Directive Response Recorded Date/ Time Advance Directives No August 27 10:06am Chief Complaint and Reason for Visit Chief Complaint REFF BY IRISH DOS SANTOS Reason for Visit Chronic pain Other intervertebral disc displacement, lumbar region Chief Complaint REFF BY IRISH DOS SANTOS M51.26 Reason for Visit Chronic pain Other intervertebral disc displacement, lumbar region Chief Complaint REFF BY IRISH DOS SANTOS M51.26 f/u after imaging Reason for Visit Chronic pain Other intervertebral disc displacement, lumbar region Other intervertebral disc displacement, lumbar region Chief Complaint REFF BY IRISH DOS SANTOS M51.26 f/u after imaging Back Pain Reason for Visit Chronic pain Other intervertebral disc displacement, lumbar region Other intervertebral disc displacement, lumbar region Chief Complaint REFF BY IRISH DOS SANTOS M51.26 f/u after imaging Back Pain Back Pain FOLLOW UP AFTER CAUDAL W/RACZ Reason for Visit Chronic pain Other intervertebral disc displacement, lumbar region Other intervertebral disc displacement, lumbar region Other intervertebral disc displacement, lumbar region Chief Complaint REFF BY IRISH DOS SANTOS M51.26 f/u after imaging Back Pain Back Pain FOLLOW UP AFTER CAUDAL W/RACZ back pain Reason for Visit Chronic pain Other intervertebral disc displacement, lumbar region Other intervertebral disc displacement, lumbar region Other intervertebral disc displacement, lumbar region Chief Complaint M51.26 f/u after imaging Back Pain Back Pain FOLLOW UP AFTER CAUDAL W/RACZ back pain back pain back pain Reason for Visit Other intervertebral disc displacement, lumbar region Other intervertebral disc displacement, lumbar region Chief Complaint f/u after imaging Back Pain Back Pain FOLLOW UP AFTER CAUDAL W/RACZ back pain back pain back pain back pain follow up after procedure Reason for Visit Other intervertebral disc displacement, lumbar region Other intervertebral disc displacement, lumbar region Chronic pain Other intervertebral disc displacement, lumbar region Additional Source Comments REASON FOR VISIT (unrecogniz ed section and content) Specialty Diagnoses / Procedures Referred By Contact Referred To Contact Neuropsychology / Neurology Diagnoses Other intervertebral disc displacement, lumbar region Procedures [place] NEUROPSYCH TESTING BY PSYCH/PHYS Immanuel Madrid MD [address] [id number] Daniel Lopez, PhD [address] [address] Referral ID Status Reason Start Date Expiration Date V isits Requested Visits Authorized [id number] Closed Co-Managemen t of Problem 01/12/2024 07/10/2024 1 1 (unrecognized sect ion and content) No Status Records FoundNo Status Records FoundNo Status Records Found INFORMATION SOURCE (unrecogn ized section and content) DATE CREATED AUTHOR 08/29/2022 [facility] DATE CREATED AUTHOR AUTHOR'S ORGANIZ ATION 01/31/2024 [facility] DATE CREATED AUTHOR AUTHOR'S ORGANIZ ATION 05/10/2024 [facility] Care Teams (unrecognized sec tion and content) Team Status: Active Member Role Status Dates James Hernández DO Primary Care Provider Active Team Status: Inactive Member Role Status Dates James Hernández DO Primary Care Provider Active Start: September 07, 2023 End: September 07, 2023 Immanuel Madrid MD Attending Provider Active Sta rt: September 07, 2023 End: September 07, 2023 Irish Monk MD Referring Provider Active Start: September 07, 2023 End: September 07, 2023 Team Status: Inactive Member Role Status Dates James Hernández DO Primary Care Provider Active Start: September 15, 2023 End: September 15, 2023 Immanuel Madrid MD Attending Provider Active Sta rt: September 15, 2023 End: September 15, 2023 Team Status: Inactive Member Role Status Dates James Hernández DO Primary Care Provider Active Start: October 02, 2023 End: October 02, 2023 Immanuel Madrid MD Attending Provider Active Sta rt: October 02, 2023 End: October 02, 2023 Team Status: Inactive Member Role Status Dates James Hernández DO Primary Care Provider Active Start: October 11, 2023 End: October 11, 2023 Immanuel Madrid MD Attending Provider Active Sta rt: October 11, 2023 End: October 11, 2023 Team Status: Active Member Role Status Katy Hernández DO Primary Care Provider Active Start: October 11, 2023 Immanuel Madrid MD Attending Provider, Other Provider Active Start: October 11, 2023 Team Status: Inactive Member Role Status Dates James Hernández DO Primary Care Provider Active Start: October 30, 2023 End: October 30, 2023 Immanuel Madrid MD Attending Provider Active Sta rt: October 30, 2023 End: October 30, 2023 Team Status: Inactive Member Role Status Dates James Hernández DO Primary Care Provider Active Start: November 29, 2023 End: November 29, 2023 Immanuel Madrid MD Attending Provider Active Sta rt: November 29, 2023 End: November 29, 2023 Team Status: Active Member Role Status Dates James Hernández DO Primary Care Provider Active Start: November 29, 2023 Immanuel Madrid MD Attending Provider, Other Provider Active Start: November 29, 2023 Team Status: Inactive Member Role Status Dates James Hernández DO Primary Care Provider Active Start: December 13, 2023 End: December 13, 2023 Immanuel Madrid MD Attending Provider Active Sta rt: December 13, 2023 End: December 13, 2023 Team Status: Active Member Role Status Dates James Hernández DO Primary Care Provider Active Start: December 13, 2023 Immanuel Madrid MD Attending Provider, Other Provider Active Start: December 13, 2023 Team Status: Inactive Member Role Status Dates James Hernández DO Primary Care Provider Active Start: December 25, 2023 End: December 25, 2023 Immanuel Madrid MD Attending Provider Active Sta rt: December 25, 2023 End: December 25, 2023 Team Status: Inactive Member Role Status Dates James Hernández DO Primary Care Provider Active Start: January 17, 2024 End: January 17, 2024 Immanuel Madrid MD Attending Provider Active Sta rt: January 17, 2024 End: January 17, 2024 Clothes Separator Relationship Specialty Start Date End Date James Hernández [place] [address] [place] [id number] PCP - General Internal Medicine 01/30/24 Clothes Separator Relationship Specialty Start Date End Date James Hernández MD [address] [place] [address] PCP - General Internal Medicine 01/30/24 Team Status: Inactive Member Role Status Dates James Hernández DO Primary Care Provider Active Start: January 31, 2024 End: January 31, 2024 Immanuel Madrid MD Attending Provider Active Sta rt: January 31, 2024 End: January 31, 2024 Team Status: Active Member Role Status Dates James Hernández DO Primary Care Provider Active Start: January 31, 2024 Immanuel Madrid MD Attending Provider, Other Provider Active Start: January 31, 2024 Team Status: Inactive Member Role Status Dates James Hernández DO Primary Care Provider Active Start: February 07, 2024 End: February 07, 2024 Immanuel Madrid MD Attending Provider Active Sta rt: February 07, 2024 End: February 07, 2024 Team Status: Inactive Member Role Status Dates James Hernández DO Primary Care Provide r, Attending Provider Active Start: February 12, 2024 End: February 12, 2024 Team Status: Inactive Member Role Status Dates James Hernández DO Primary Care Provider Active Start: February 21, 2024 End: February 21, 2024 Immanuel Madrid MD Attending Provider Active Sta rt: February 21, 2024 End: February 21, 2024 Team Status: Active Member Role Status Dates James Hernández DO Primary Care Provider Active Start: February 21, 2024 Immanuel Madrid MD Attending Provider, Other Provider Active Start: February 21, 2024 Team Status: Inactive Member Role Status Dates James Hernández DO Primary Care Provider Active Start: February 28, 2024 End: February 28, 2024 Immanuel Madrid MD Attending Provider Active Sta rt: February 28, 2024 End: February 28, 2024 Team Status: Inactive Member Role Status Katy Hernández DO Primary Care Provider Active Start: March 06, 2024 End: March 06, 2024 Immanuel Madrid MD Attending Provider Active Sta rt: March 06, 2024 End: March 06, 2024 Team Status: Active Member Role Status Katy Hernández DO Primary Care Provider Active Start: March 06, 2024 Immanuel Madrid MD Attending Provider, Other Provider Active Start: March 06, 2024 Team Status: Inactive Member Role Status Katy Hernández DO Primary Care Provider Active Start: March 13, 2024 End: March 13, 2024 Immanuel Madrid MD Attending Provider Active Sta rt: March 13, 2024 End: March 13, 2024 Goals (unrecognized section and content) Goals may be documented in a n alternate section FOR RECORDS PERTAINING TO PATIENTS WHO ARE [...] BE BASED ON THE PRIMARY CLINICAL RECORDS. [facility] provides no warranty or guarantee of the accuracy or completeness of information in this document.
[2024-06-13 12:44] LABS: Basophils Absolute Auto 0.1 10^3/uL (0.0-0.1); Basophils Percent Auto 0.5 % (0.2-2.0); Eosinophils Absolute Auto 0.2 10^3/uL (0.0-0.7); Eosinophils Percent Auto 1.7 % (0.9-7.0); Hematocrit 43.9 % (42.0-54.0); Hemoglobin 14.6 g/dL (14.0-18.0); Immature Granulocytes Abs Auto 0.03 10^3/uL (0.00-0.03); Immature Granulocytes Pct Auto 0.3 % (0.0-0.5); Lymphocytes Percent Auto 31.3 % (20.5-60.0); Mean Corpuscular HGB Conc 33.3 g/dL (29.9-35.2); Mean Corpuscular Hemoglobin 30.9 pg (25.9-34.0); Mean Platelet Volume 10.6 fL (9.5-13.5); Monocytes Absolute Auto 0.7 10^3/uL (0.3-0.8); Monocytes Percent Auto 7.7 % (1.7-12.0); Neutrophils Absolute Auto 5.7 10^3/uL (1.4-6.5); Neutrophils Percent Auto 58.5 % (43.0-75.0); Platelet Count 256 10^3/uL (150-450); Red Blood Count 4.72 10^6/uL (4.70-6.10); Red Cell Distribution Width 13.1 % (11.0-15.0); White Blood Count 9.7 10^3/uL (4.0-11.0)
[2024-06-13 12:51] LABS: Erythrocyte Sedimentation Rate 7 mm/hr (<=20)
[2024-06-13 13:25] LABS: Alanine Aminotransferase 36 U/L (16-63); Albumin Globulin Ratio 1.2; Albumin Level 3.8 g/dL (3.4-5.0); Alkaline Phosphatase 86 U/L (46-116); Anion Gap 10.8; Aspartate Amino Transferase 16 U/L (15-37); BUN Creatinine Ratio 7.4; Bilirubin Total 0.3 mg/dL (0.2-1.0); C Reactive Protein <0.50 mg/dL (<=0.50); Calcium 9.2 mg/dL (8.5-10.1); Carbon Dioxide 30.4 mmol/L (21.0-32.0); Chloride 103 mmol/L (98-107); Chol HDL Ratio 2.8; Cholesterol 136 mg/dL (<=200); Estimated GFR (African America >60 (>=60 mL/min/1.73m^2); Estimated GFR (Non-African Ame >60 (>=60 mL/min/1.73m^2); Globulin 3.3 g/dL; Glucose 91 mg/dL (74-106); HDL Cholesterol 48 mg/dL (40-60); LDL Cholesterol Calculated 72.6 mg/dL; Potassium 4.2 mmol/L (3.5-5.1); Sodium 140 mmol/L (136-145); Total Protein 7.1 g/dL (6.4-8.2); Triglycerides 77 mg/dL (<=150); Uric Acid 4.6 mg/dL (3.5-7.2); VLDL CHOLESTEROL 15.4 mg/dL
[2024-06-13 13:37] LABS: Prostate Specific Antigen Scrn 1.01 ng/mL (<=4.00)
[2024-06-14 05:07] LABS: Rheumatoid Factor (RF) <10.0 IU/mL (<14.0)
== END 2024-06-13 12:00 | disposition home or self-care (01) ==
LOC: LAB 12:01
PROVIDERS: PCP Internal Medicine; Visit Provider Internal Medicine
DX: Z00.00 Encounter for general adult medical examination without abnormal findings (principal); M13.0 Polyarthritis, unspecified
CPT/HCPCS: 36415; 80053; 80061; 84550; 85025; 85652; 86140; 86431; G0103